=== PATIENT | female | born 1955 | race African-American/Black ===

== ENCOUNTER 2020-02-13 11:06 | Outpatient (REF) | payer OTHER, SELFPAY ==
[2020-02-13 14:01] LABS: MANUAL DIFF FLAG NO
[2020-02-13 14:04] LABS: Basophils Percent Auto 0.5 % (0-2); Eosinophils Absolute Auto 0.1 X10*3/uL (0.0-0.4); Eosinophils Percent Auto 1.2 % (0-4); Hematocrit 40.8 % (37-47); Hemoglobin 13.2 g/dl (12.0-16.0); Imm Gran Abs Auto 0.01 X10*3/uL (0.00-0.03); Imm Gran Pct Auto 0.2 % (0.0-0.4); Lymphocytes Absolute Auto 1.6 X10*3/uL (1.2-4.9); Lymphocytes Percent Auto 39.4 % (20-40); Mean Corpuscular HGB Conc 32.4 g/dl (31.0-35.0); Mean Corpuscular Hemoglobin 28.2 pg (27.0-33.0); Mean Corpuscular Volume 87.2 fL (80-98); Mean Platelet Volume 10.9 fL (9.4-12.3); Monocytes Absolute Auto 0.3 X10*3/uL (0.1-1.2); Monocytes Percent Auto 6.7 % (2-11); Neutrophils Absolute Auto 2.1 X10*3/uL (2.0-8.3); Platelet Count 218 X10*3/uL (160-400); Red Blood Count 4.68 X10*6/uL (4.20-5.50); Red Cell Distribution Width 12.2 % (11.0-16.0); White Blood Count 4.1 X10*3/uL (4.8-10.8)
[2020-02-13 14:32] LABS: Alanine Aminotransferase 18 U/L (0-31); Albumin Level 4.5 g/dL (3.5-5.0); Alkaline Phosphatase 116 U/L (39-117); Anion Gap 14 (12-20); Aspartate Amino Transferase 20 U/L (5-31); Bilirubin Total 1.2 mg/dL (0.0-1.0); Blood Urea Nitrogen 16 mg/dL (9-16); Calcium 8.5 mg/dL (8.4-10.2); Carbon Dioxide 32 mmol/L (22-29); Chloride 101 mmol/L (96-108); Cholesterol 181 mg/dL; Estimated Glomerular Filt Rate > 60; Glucose Fasting 105 mg/dL (60-99); HDL Cholesterol 58 mg/dL; LDL Cholesterol Calculated 112 mg/dl; Potassium 4.1 mmol/l (3.3-5.1); Sodium 143 mmol/L (135-145); Total Protein 7.1 g/dL (6.5-8.0); Triglycerides 58 mg/dL
[2020-02-13 14:56] LABS: Vitamin D 25-OH Total 50.1 ng/mL (>30)
== END 2020-02-13 11:07 | disposition home or self-care (01) ==
LOC: HO.HMGCLDS 11:06
PROVIDERS: PCP Internal Medicine; Visit Provider Internal Medicine
DX: E78.00 Pure hypercholesterolemia, unspecified (principal); E55.9 Vitamin D deficiency, unspecified; I10 Essential (primary) hypertension
CPT/HCPCS: 36415; 80053; 80061; 82306; 85025

== ENCOUNTER 2020-03-04 12:07 | Outpatient (REF) | payer OTHER, SELFPAY ==
--- NOTE | 2020-03-04 | MM_ITS ---
EXAMINATION: MM SCREENING DIGITAL BREAST TOMOSYNTHESIS, BILATERAL CLINICAL INFORMATION: Screening. Asymptomatic. The lifetime risk of breast cancer based on the Tyrer-Cuzick Model is 7%. COMPARISON: Mammography: 02/16/2019, 02/14/2018, 02/11/2017 TECHNIQUE: Digital breast tomosynthesis is performed in both the craniocaudal and mediolateral oblique views along with computer-aided detection (CAD). Synthesized 2D images are generated from the tomosynthesis. FINDINGS: The breasts are heterogeneously dense, which may obscure small masses (ACR BI-RADS breast composition Category c). There are no significant masses, abnormal calcifications, or other abnormalities. There is fibronodular parenchymal pattern similar to prior studies. No developing density. No significant changes. MM/MM tomosynthesis screening BI IMPRESSION: No mammographic evidence of malignancy. ASSESSMENT: BI-RADS 1: Negative RECOMMENDATION: Routine annual mammography screening. This patient's information was entered into a reminder system with a target due date for their next mammogram.
== END 2020-03-04 12:08 | disposition home or self-care (01) ==
LOC: HO.MAMMO 12:07
PROVIDERS: PCP Internal Medicine; Visit Provider Internal Medicine
DX: Z12.31 Encounter for screening mammogram for malignant neoplasm of breast (principal)
CPT/HCPCS: 77063; 77067

== ENCOUNTER 2020-08-21 11:46 | Outpatient (REF) | payer OTHER, SELFPAY ==
[2020-08-21 14:48] LABS: Anion Gap 13 (12-20); Blood Urea Nitrogen 14 mg/dL (9-16); Carbon Dioxide 31 mmol/L (22-29); Chloride 102 mmol/L (96-108); Estimated Glomerular Filt Rate > 60; Glucose Random 112 mg/dL (60-115); Potassium 3.9 mmol/L (3.3-5.1); Sodium 142 mmol/L (135-145)
== END 2020-08-21 11:47 | disposition home or self-care (01) ==
LOC: HO.10HDL 11:46
PROVIDERS: Visit Provider Internal Medicine
DX: I10 Essential (primary) hypertension (principal); E78.00 Pure hypercholesterolemia, unspecified
CPT/HCPCS: 36415; 80048

== ENCOUNTER 2021-01-30 10:51 | Outpatient (REF) | payer OTHER, SELFPAY ==
[2021-01-30 11:15] LABS: COVID-19 Test Negative (Negative)
== END 2021-01-30 10:52 | disposition home or self-care (01) ==
LOC: HO.LAB 10:51
PROVIDERS: PCP Internal Medicine; Visit Provider Internal Medicine
DX: Z20.822 Contact with and (suspected) exposure to COVID-19 (principal)
CPT/HCPCS: 36415; 87635; C9803

== ENCOUNTER 2021-03-11 13:55 | Outpatient (REF) | payer OTHER, SELFPAY ==
--- NOTE | ~2021-03-11 | MM_ITS ---
EXAMINATION: MM SCREENING DIGITAL BREAST TOMOSYNTHESIS, BILATERAL CLINICAL INFORMATION: Screening. Asymptomatic. The lifetime risk of breast cancer based on the Tyrer-Cuzick Model is 6.3%. COMPARISON: Mammography: March 04, 2020 and studies dating back to December 04, 2011 TECHNIQUE: Digital breast tomosynthesis is performed in both the craniocaudal and mediolateral oblique views along with computer-aided detection (CAD). Synthesized 2D images are generated from the tomosynthesis. FINDINGS: The breasts are heterogeneously dense, which may obscure small masses (ACR BI-RADS breast composition Category c). There are no significant masses, abnormal calcifications, or other abnormalities. MM/MM tomosynthesis screening BI IMPRESSION: There are no significant changes from prior study. ASSESSMENT: BI-RADS 1: Negative RECOMMENDATION: Routine annual mammography screening. This patient's information was entered into a reminder system with a target due date for their next mammogram.
== END 2021-03-11 13:56 | disposition home or self-care (01) ==
LOC: HO.MAMMO 13:55
PROVIDERS: Visit Provider Internal Medicine
DX: Z12.31 Encounter for screening mammogram for malignant neoplasm of breast (principal)
CPT/HCPCS: 77063; 77067

== ENCOUNTER 2021-03-15 12:09 | Outpatient (REF) | payer OTHER, SELFPAY ==
[2021-03-15 13:10] LABS: MANUAL DIFF FLAG NO
[2021-03-15 13:31] LABS: Basophils Percent Auto 0.3 % (0-2); Eosinophils Percent Auto 0.6 % (0-4); Hemoglobin 12.7 g/dl (12.0-16.0); Imm Gran Abs Auto 0.01 X10*3/uL (0.00-0.03); Imm Gran Pct Auto 0.3 % (0.0-0.4); Lymphocytes Absolute Auto 1.7 X10*3/uL (1.2-4.9); Lymphocytes Percent Auto 50.2 % (20-40); Mean Corpuscular HGB Conc 32.6 g/dl (31.0-35.0); Mean Corpuscular Hemoglobin 27.6 pg (27.0-33.0); Mean Corpuscular Volume 84.8 fL (80.0-98.0); Mean Platelet Volume 11.2 fL (9.4-12.3); Monocytes Absolute Auto 0.2 X10*3/uL (0.1-1.2); Monocytes Percent Auto 6.6 % (2-11); Neutrophils Absolute Auto 1.4 x10*3/uL (2.0-8.3); Platelet Count 220 X10*3/uL (160-400); Red Cell Distribution Width 12.4 % (11.0-16.0); White Blood Count 3.3 X10*3/uL (4.8-10.8)
[2021-03-15 13:46] LABS: Alanine Aminotransferase 17 U/L (0-31); Albumin Level 4.3 g/dL (3.5-5.0); Alkaline Phosphatase 101 U/L (39-117); Anion Gap 12 (12-20); Aspartate Amino Transferase 19 U/L (5-31); Bilirubin Total 1.2 mg/dL (0.0-1.0); Blood Urea Nitrogen 14 mg/dL (9-16); Calcium 8.8 mg/dL (8.4-10.2); Carbon Dioxide 28 mmol/L (22-29); Chloride 107 mmol/L (96-108); Cholesterol 169 mg/dL; Estimated Glomerular Filt Rate > 60; Glucose Fasting 107 mg/dL (60-99); HDL Cholesterol 49 mg/dL; LDL Cholesterol Calculated 108 mg/dl; Potassium 3.7 mmol/L (3.3-5.1); Sodium 143 mmol/L (135-145); Total Protein 6.9 g/dL (6.5-8.0); Triglycerides 63 mg/dL
== END 2021-03-15 12:10 | disposition home or self-care (01) ==
LOC: HO.HMGCLDS 12:09
PROVIDERS: PCP Internal Medicine; Visit Provider Internal Medicine
DX: I10 Essential (primary) hypertension (principal); E78.00 Pure hypercholesterolemia, unspecified; K57.90 Diverticulosis of intestine, part unspecified, without perforation or abscess without bleeding
CPT/HCPCS: 36415; 80053; 80061; 85025

== ENCOUNTER 2021-07-15 07:25 | Day surgery (SDC) | payer OTHER, SELFPAY ==
[2021-07-10 09:51] VITALS: BMI 29.0
--- NOTE | 2021-07-14 09:50 | P.CONAN_ITS ---
Documented by User: Alicia Eaton NP 07/14/21 09:51 HPI - Anesthesia Eval Consult details Narrative: 66yo F for Colonoscopy [facility] Past Medical History Medical History (Updated 07/10/21 @ 09:47 by Ann Campuzano RN) Elevated cholesterol HTN (hypertension) Surgical History Surgical History (Updated 07/10/21 @ 09:47 by Ann Campuzano RN) H/O colonoscopy Hx of hysterectomy Social History Social History Patient Tobacco Use Status: Never used Tobacco Advance Directives Information Provided: Yes (brochure mailed) Advance Directives on File: No Meds Allergies Allergy/AdvReac Type Severity Reaction Status Date / Time No Known Allergies Allergy Verified 07/10/21 09:47 [No Known Allergies*] Home Medications Medication Instructions Recorded Confirmed Last Taken Type cholecalciferol (vitamin D3) 25 25 mcg PO DAILY 07/10/21 07/10/21 Unknown His tory mcg (1,000 unit) capsule (Vitamin D3) hydrochlorothiazide 12.5 mg tablet 1 tab PO DAILY 07/10/21 07/10/21 Unknown History meloxicam 15 mg tablet 1 tab PO DAILY 07/10/21 07/10/21 Unknown History simvastatin 40 mg tablet 1 tab PO DAILY 07/10/21 07/10/21 Unknown History Exam Exam Date and Time: July 14, 2021 0950 Height,Weight and Vital Signs: Height 5 ft 4 in Weight 76.657 kg Pertinent Lab Results Pertinent Lab Results: Laboratory Tests 03/15/21 03/15/21 12:15 12:15 WBC 3.3 L Hgb 12.7 Hct 39.0 Plt Count 220 Sodium 143 Potassium 3.7 Chloride 107 Carbon Dioxide 28 BUN 14 Creatinine 0.78 Assessment and Plan Assessment Anesthesia Assessment: Chart Reviewed Documented by User: Sathish Rodriguez MD 07/15/21 08:13 [facility] Past Medical History Medical History (Updated 07/10/21 @ 09:47 by Ann Campuzano RN) Elevated cholesterol HTN (hypertension) Family History Family history of problems with anesthesia: No Surgical History Surgical History (Updated 07/10/21 @ 09:47 by Ann Campuzano RN) H/O colonoscopy Hx of hysterectomy History of Problems with Anesthesia: No Social History Social History Patient Tobacco Use Status: Never used Tobacco Advance Directives Information Provided: Yes (brochure mailed) Advance Directives on File: No Meds Allergies Allergy/AdvReac Type Severity Reaction Status Date / Time No Known Allergies Allergy Verified 07/10/21 09:47 [No Known Allergies*] Home Medications Medication Instructions Recorded Confirmed Last Taken Type cholecalciferol (vitamin D3) 25 25 mcg PO DAILY 07/10/21 07/10/21 Unknown History mcg (1,000 unit) capsule (Vitamin D3) hydrochlorothiazide 12.5 mg tablet 1 tab PO DAILY 07/10/21 07/10/21 Unknown History meloxicam 15 mg tablet 1 tab PO DAILY 07/10/21 07/10/21 Unknown History simvastatin 40 mg tablet 1 tab PO DAILY 07/10/21 07/10/21 Unknown History Exam Airway Mallampati Class: II TM Dist: >3cm Neck ROM: Full Loose/Missing/Broken Teeth: No Heart: [id number] Lungs: cta b/l Assessment and Plan Assessment Anesthesia Assessment: Anesthesia Plan Discussed Final Anesthetic Review Family History of Problems with Anesthesia: No History of Problems with Anesthesia: No NPO: Yes ASA Class: II Final Preanesthetic Review: No Changes in Pt Med Stat, Meds/Allgs Chart Reviewed, Consent Obtained/Reviewed and Anes Risks/Benef Reviewed Patient Risk: Intermediate Procedure Risk: Low Anesthetic Plan Anesthetic Plan: MAC: and Agree w/ Assess. and Plan Disposition: Standard PACU
[2021-07-15 07:40] VITALS: BP 142/83; PULSE 78; RESP 16; TEMP 36.7; O2SAT 99; BMI 28.6
[2021-07-15] MEDS: Lactated Ringers 1,000 ML 100 ML IVCONT (08:04)
--- NOTE | 2021-07-15 08:45 | MHC.SHP ---
Pre-Procedural Eval Section A Date of Service: 07/15/21 Section B Chief Complaint: Screening Details of Present Illness: screening Relevant Family History (Specify if Yes): No Relevant Social History: None Present Medications: see Short Stay Collaborative assessment Medical History: No relevant PMH History of Previous Operations: No relevant previous surgery Allergies: Allergies Allergy/AdvReac Type Severity Reaction Status Date / Time No Known Allergies Allergy Verified 07/10/21 09:47 [No Known Allergies*] Review of Systems Sugical H&P ROS: Negative: Constitution, Cardiovascular, Respiratory, Neurological, Psychiatric, Hem-Onc, Allergic/Immunologic, Gastrointestinal, Genitourinary, Musculoskeletal, Integumentary, Endocrine and Eyes/Ears/Nose/Throat Exam Surgical H&P Exam: Normal: HEENT, Normal: Heart, Normal: Lungs, Normal: Extremities, Normal: Abdomen, Normal: Skin and Normal: Neurological Plan Diagnosis/Plan: Unchanged I have reviewed the history and physical and performed a pertinent physical examination on my patient. No changes have occurred unless specified.
--- NOTE | 2021-07-15 09:07 | PM.OP ---
Brief Operative Note Date of Service: 07/15/21 Pre-op diagnosis: screening Post-op diagnosis: same Procedure: colonoscopy Surgeon: Alec Mclaughlin Anesthesia: MAC Was an Set Up Mechanic Coil Winding Machines used for this Procedure?: No Estimated blood loss (mL): 0 Pathology: none sent Condition: stable Disposition: PACU
[2021-07-15 09:12] VITALS: BP 86/51; PULSE 62; RESP 16; TEMP 36.3; O2SAT 98
[2021-07-15 09:26] VITALS: BP 119/65; PULSE 61; RESP 16; O2SAT 99
[2021-07-15 09:30] VITALS: BP 127/70; PULSE 60; RESP 16; TEMP 36.1; O2SAT 97
--- NOTE | 2021-07-15 09:47 | OP_ITS ---
SURGEON: Alec Mclaughlin MD INDICATIONS: Colon cancer screening. PREOPERATIVE DIAGNOSIS: POSTOPERATIVE DIAGNOSIS: PROCEDURE PERFORMED: Colonoscopy to the terminal ilium. ESTIMATED BLOOD LOSS: COMPLICATIONS: ANESTHESIA: Medications, monitored anesthesia care. ASSISTANTS: SPECIMENS: DESCRIPTION OF PROCEDURE: History and physical performed. The risks and benefits of the procedure were explained to the patient. Informed consent was obtained. The patient was placed in the left lateral decubitus position. A digital rectal exam was performed and was found to be normal. The Olympus pediatric video colonoscope was introduced into the rectum and advanced to the cecum without difficulty. The cecum was identified by transillumination, palpation, and identification of ileocecal valve. Examination was performed. The scope was removed. She tolerated the procedure well, was returned to the recovery area in stable condition. FINDINGS: The terminal ileum was normal. The visualized colonic mucosa was normal. The quality of the prep was good. There was mild sigmoid diverticulosis with scattered diverticula in the right colon. Retroflexed examination showed small internal hemorrhoids. IMPRESSION: Normal screening colonoscopy. RECOMMENDATION: 1. Follow up as needed. 2. Repeat colonoscopy is recommended in 10 years for average risk individuals. MD KARISSA Hall/NAREN / [phone]
== END 2021-07-15 10:10 | disposition home or self-care (01) ==
PROVIDERS: PCP Internal Medicine; Visit Provider Internal Medicine Gastroenterology
PROC: 0DJD8ZZ Inspection of Lower Intestinal Tract, Via Natural or Artificial Opening Endoscopic (ICD-10-PCS; CPT 45378; principal; 2021-07-15 08:40)
DX: Z12.11 Encounter for screening for malignant neoplasm of colon (principal); K57.30 Diverticulosis of large intestine without perforation or abscess without bleeding; K64.8 Other hemorrhoids; I10 Essential (primary) hypertension; E78.00 Pure hypercholesterolemia, unspecified; Z79.899 Other long term (current) drug therapy
CPT/HCPCS: 45378

== ENCOUNTER 2021-12-04 11:38 | Outpatient (REF) | payer OTHER, SELFPAY ==
[2021-12-04 14:20] LABS: Anion Gap 18 (12-20); Blood Urea Nitrogen 13 mg/dL (9-16); Calcium 8.6 mg/dL (8.4-10.2); Carbon Dioxide 24 mmol/L (22-29); Chloride 105 mmol/L (96-108); Estimated Glomerular Filt Rate > 60; Glucose Random 104 mg/dL (60-115); Potassium 4.4 mmol/L (3.3-5.1); Sodium 143 mmol/L (135-145)
[2021-12-04 14:41] LABS: Vitamin D 25-OH Total 46.8 ng/mL (>30)
== END 2021-12-04 11:39 | disposition home or self-care (01) ==
LOC: HO.10HDL 11:38
PROVIDERS: Visit Provider Internal Medicine
DX: I10 Essential (primary) hypertension (principal); E55.9 Vitamin D deficiency, unspecified
CPT/HCPCS: 36415; 80048; 82306

== ENCOUNTER 2022-03-16 12:31 | Outpatient (REF) | payer OTHER, SELFPAY ==
[2022-03-16 12:44] LABS: MANUAL DIFF FLAG NO
[2022-03-16 14:07] LABS: Basophils Percent Auto 0.3 % (0-2); Eosinophils Percent Auto 0.9 % (0-4); Hematocrit 38.8 % (37.0-47.0); Hemoglobin 12.8 g/dl (12.0-16.0); Imm Gran Abs Auto 0.01 X10*3/uL (0.00-0.03); Imm Gran Pct Auto 0.3 % (0.0-0.4); Lymphocytes Absolute Auto 1.7 X10*3/uL (1.2-4.9); Lymphocytes Percent Auto 48.4 % (20-40); Mean Corpuscular Hemoglobin 27.8 pg (27.0-33.0); Mean Corpuscular Volume 84.2 fL (80.0-98.0); Mean Platelet Volume 11.4 fL (9.4-12.3); Monocytes Absolute Auto 0.3 X10*3/uL (0.1-1.2); Neutrophils Absolute Auto 1.5 x10*3/uL (2.0-8.3); Neutrophils Percent Auto 42.1 % (45-73); Platelet Count 200 X10*3/uL (160-400); Red Blood Count 4.61 X10*6/uL (4.20-5.50); Red Cell Distribution Width 12.5 % (11.0-16.0); White Blood Count 3.5 X10*3/uL (4.8-10.8)
[2022-03-16 14:41] LABS: Alanine Aminotransferase 18 U/L (0-31); Albumin Level 4.4 g/dL (3.5-5.0); Alkaline Phosphatase 87 U/L (39-117); Anion Gap 12 (12-20); Aspartate Amino Transferase 19 U/L (5-31); Bilirubin Total 1.5 mg/dL (0.0-1.0); Blood Urea Nitrogen 16 mg/dL (9-16); Calcium 9.2 mg/dL (8.4-10.2); Carbon Dioxide 30 mmol/L (22-29); Chloride 106 mmol/L (96-108); Cholesterol 201 mg/dL; Estimated Glomerular Filt Rate > 60; Glucose Random 91 mg/dL (60-115); HDL Cholesterol 55 mg/dL; LDL Cholesterol Calculated 131 mg/dl; Sodium 144 mmol/L (135-145); Total Protein 6.7 g/dL (6.5-8.0); Triglycerides 76 mg/dL
== END 2022-03-16 12:32 | disposition home or self-care (01) ==
LOC: HO.LAB 12:31
PROVIDERS: PCP Internal Medicine; Visit Provider Internal Medicine
DX: Z00.00 Encounter for general adult medical examination without abnormal findings (principal)
CPT/HCPCS: 36415; 80053; 80061; 85025

== ENCOUNTER 2022-03-19 09:39 | Outpatient (REF) | payer OTHER, SELFPAY ==
--- NOTE | ~2022-03-19 | MM_ITS ---
EXAMINATION: MM SCREENING DIGITAL BREAST TOMOSYNTHESIS, BILATERAL CLINICAL INFORMATION: Screening. Asymptomatic. The lifetime risk of breast cancer based on the Tyrer-Cuzick Model is 6%. COMPARISON: Mammography: March 11, 2021 and studies dating back to February 10, 2016 TECHNIQUE: Digital breast tomosynthesis is performed in both the craniocaudal and mediolateral oblique views along with computer-aided detection (CAD). Synthesized 2D images are generated from the tomosynthesis. FINDINGS: The breasts are extremely dense, which lowers the sensitivity of mammography (ACR BI-RADS breast composition Category d). There are no significant masses, abnormal calcifications, or other abnormalities. MM/MM tomosynthesis screening BI IMPRESSION: No significant changes ASSESSMENT: BI-RADS 1: Negative RECOMMENDATION: Routine annual mammography screening. This patient's information was entered into a reminder system with a target due date for their next mammogram.
== END 2022-03-19 09:40 | disposition home or self-care (01) ==
LOC: HO.MAMMO 09:39
PROVIDERS: PCP Internal Medicine; Visit Provider Internal Medicine
DX: Z12.31 Encounter for screening mammogram for malignant neoplasm of breast (principal)
CPT/HCPCS: 77063; 77067

== ENCOUNTER 2022-08-31 15:49 | Outpatient (REF) | payer OTHER, SELFPAY ==
--- NOTE | ~2022-08-31 | XR_ITS ---
EXAMINATION: XR KNEE, LEFT CLINICAL INFORMATION: Pain. COMPARISON: None available. TECHNIQUE: Four views of the left knee. FINDINGS: No acute fractures or malalignment. Mild joint space narrowing and subcortical sclerosis of the medial and patellofemoral compartments. Small osteophytes along the anterior surface of the patella. No erosions or chondrocalcinosis. No joint effusion. XR/XR knee LT 4V IMPRESSION: No acute fractures or malalignment. Mild degenerative osteoarthritis of the medial and patellofemoral compartments.
== END 2022-08-31 15:50 | disposition home or self-care (01) ==
LOC: HO.XRAY 15:49
PROVIDERS: PCP Internal Medicine; Visit Provider Internal Medicine
DX: M25.562 Pain in left knee (principal)
CPT/HCPCS: 73564

== ENCOUNTER 2022-10-23 10:48 | Outpatient (REF) | payer OTHER, SELFPAY ==
[2022-10-23 13:27] LABS: MANUAL DIFF FLAG NO
[2022-10-23 13:36] LABS: Basophils Percent Auto 0.3 % (0-2); Eosinophils Percent Auto 1.3 % (0-4); Hematocrit 39.7 % (37.0-47.0); Imm Gran Abs Auto 0.01 X10*3/uL (0.00-0.03); Imm Gran Pct Auto 0.3 % (0.0-0.4); Lymphocytes Absolute Auto 1.4 X10*3/uL (1.2-4.9); Lymphocytes Percent Auto 43.8 % (20-40); Mean Corpuscular HGB Conc 32.7 g/dl (31.0-35.0); Mean Corpuscular Hemoglobin 28.3 pg (27.0-33.0); Mean Corpuscular Volume 86.5 fL (80.0-98.0); Mean Platelet Volume 11.5 fL (9.4-12.3); Monocytes Absolute Auto 0.3 X10*3/uL (0.1-1.2); Monocytes Percent Auto 9.9 % (2-11); Neutrophils Absolute Auto 1.4 x10*3/uL (2.0-8.3); Neutrophils Percent Auto 44.4 % (45-73); Platelet Count 195 X10*3/uL (160-400); Red Blood Count 4.59 X10*6/uL (4.20-5.50); Red Cell Distribution Width 12.4 % (11.0-16.0); White Blood Count 3.1 X10*3/uL (4.8-10.8)
[2022-10-23 14:52] LABS: Anion Gap 12 (12-20); Blood Urea Nitrogen 21 mg/dL (9-16); Calcium 9.7 mg/dL (8.4-10.2); Carbon Dioxide 30 mmol/L (22-29); Chloride 104 mmol/L (96-108); Estimated Glomerular Filt Rate > 60; Glucose Random 108 mg/dL (60-115); Potassium 3.9 mmol/L (3.3-5.1); Sodium 142 mmol/L (135-145)
== END 2022-10-23 10:49 | disposition home or self-care (01) ==
LOC: HO.10HDL 10:48
PROVIDERS: Visit Provider Internal Medicine
DX: I10 Essential (primary) hypertension (principal); E78.00 Pure hypercholesterolemia, unspecified
CPT/HCPCS: 36415; 80048; 85025

== ENCOUNTER 2023-03-25 09:05 | Outpatient (REF) | payer OTHER, SELFPAY ==
--- NOTE | ~2023-03-25 | MM_ITS ---
EXAMINATION: MM SCREENING DIGITAL BREAST TOMOSYNTHESIS, BILATERAL CLINICAL INFORMATION: Screening. Asymptomatic. COMPARISON: Mammography: 2021, 03/11/2021, and dating back to 2009. TECHNIQUE: Digital breast tomosynthesis is performed in both the craniocaudal and mediolateral oblique views along with computer-aided detection (CAD). Synthesized 2D images are generated from the tomosynthesis. FINDINGS: The breasts are heterogeneously dense, which may obscure small masses (ACR BI-RADS breast composition Category c). There are no suspicious masses, suspicious grouped calcifications, or areas of architectural distortion in either breast. The parenchymal pattern is stable from prior exams. There are no skin or axillary abnormalities. MM/MM tomosynthesis screening BI IMPRESSION: No mammographic evidence of malignancy. ASSESSMENT: BI-RADS BI-RADS 1 - Negative RECOMMENDATION: Routine annual mammography screening. 1 year F/U This examination should not preclude the clinical evaluation of a suspicious palpable abnormality. This patient's information was entered into a reminder system with a target due date for their next mammogram.
== END 2023-03-25 09:06 | disposition home or self-care (01) ==
LOC: HO.MAMMO 09:05
PROVIDERS: PCP Internal Medicine; Visit Provider Internal Medicine
DX: Z12.31 Encounter for screening mammogram for malignant neoplasm of breast (principal)
CPT/HCPCS: 77063; 77067

== ENCOUNTER → 2023-03-25 09:30 | Outpatient (BNV) | payer OTHER, SELFPAY | PROVIDERS: PCP Internal Medicine; Visit Provider Radiology Diagnostic Radiology | DX: Z12.31 Encounter for screening mammogram for malignant neoplasm of breast (principal) | CPT/HCPCS: 77063; 77067 ==

== ENCOUNTER 2023-07-05 11:53 | Outpatient (REF) | payer OTHER, SELFPAY ==
[2023-07-05 13:55] LABS: MANUAL DIFF FLAG NO
[2023-07-05 14:08] LABS: Basophils Percent Auto 0.3 % (0-2); Eosinophils Absolute Auto 0.1 X10*3/uL (0.0-0.4); Eosinophils Percent Auto 1.7 % (0-4); Hematocrit 38.7 % (37.0-47.0); Imm Gran Abs Auto 0.01 X10*3/uL (0.00-0.03); Imm Gran Pct Auto 0.3 % (0.0-0.4); Lymphocytes Absolute Auto 1.5 X10*3/uL (1.2-4.9); Lymphocytes Percent Auto 43.2 % (20-40); Mean Corpuscular HGB Conc 33.6 g/dl (31.0-35.0); Mean Corpuscular Hemoglobin 28.4 pg (27.0-33.0); Mean Corpuscular Volume 84.5 fL (80.0-98.0); Mean Platelet Volume 11.2 fL (9.4-12.3); Monocytes Absolute Auto 0.3 X10*3/uL (0.1-1.2); Monocytes Percent Auto 7.5 % (2-11); Neutrophils Absolute Auto 1.6 x10*3/uL (2.0-8.3); Platelet Count 205 X10*3/uL (160-400); Red Blood Count 4.58 X10*6/uL (4.20-5.50); Red Cell Distribution Width 12.1 % (11.0-16.0); White Blood Count 3.5 X10*3/uL (4.8-10.8)
[2023-07-05 14:44] LABS: Anion Gap 12 (12-20); Blood Urea Nitrogen 18 mg/dL (9-16); Calcium 9.2 mg/dL (8.4-10.2); Carbon Dioxide 31 mmol/L (22-29); Chloride 104 mmol/L (96-108); Estimated Glomerular Filt Rate > 60; Glucose Random 105 mg/dL (60-115); Potassium 4.1 mmol/L (3.3-5.1); Sodium 143 mmol/L (135-145)
== END 2023-07-05 11:54 | disposition home or self-care (01) ==
LOC: HO.10HDL 11:53
PROVIDERS: Visit Provider Internal Medicine
DX: I10 Essential (primary) hypertension (principal); E78.00 Pure hypercholesterolemia, unspecified
CPT/HCPCS: 36415; 80048; 85025

== ENCOUNTER 2024-06-19 11:02 | Outpatient (REF) | payer OTHER, SELFPAY ==
[2024-06-19 11:11] LABS: MANUAL DIFF FLAG NO
[2024-06-19 11:40] LABS: Basophils Percent Auto 0.3 % (0-2); Eosinophils Percent Auto 1.1 % (0-4); Hematocrit 39.1 % (37.0-47.0); Hemoglobin 12.7 g/dl (12.0-16.0); Imm Gran Abs Auto 0.02 X10*3/uL (0.00-0.03); Imm Gran Pct Auto 0.6 % (0.0-0.4); Lymphocytes Absolute Auto 1.5 X10*3/uL (1.2-4.9); Lymphocytes Percent Auto 41.5 % (20-40); Mean Corpuscular HGB Conc 32.5 g/dl (31.0-35.0); Mean Corpuscular Volume 86.3 fL (80.0-98.0); Mean Platelet Volume 11.1 fL (9.4-12.3); Monocytes Absolute Auto 0.3 X10*3/uL (0.1-1.2); Monocytes Percent Auto 7.4 % (2-11); Neutrophils Absolute Auto 1.7 x10*3/uL (2.0-8.3); Neutrophils Percent Auto 49.1 % (45-73); Platelet Count 216 X10*3/uL (160-400); Red Blood Count 4.53 X10*6/uL (4.20-5.50); Red Cell Distribution Width 12.6 % (11.0-16.0); White Blood Count 3.5 X10*3/uL (4.8-10.8)
--- OUTSIDE RECORDS SUMMARY | 2024-06-19 12:29 | XMS_ITS ---
Author Organization [facility] Address [address] [place] [address] Care Team Providers Care Food Service Ambassador Name Role Phone Beny Abraham MD Primary Care Provider UnavailBreanna Flynn Unavailable [phone] Waylon Streeter Unavailable [phone] Allergies No Known Allergies REASON FOR VISIT Wart(s), Ingrown nail(s) Medications Medication SIG (Take, Route, Frequency, Duration) Notes Start Date End Date Status hydroCHLOROthiazide 12.5 MG as directed Orally Once a day Active Simvastatin 40 MG as directed Orally O nce a day Active Vitamin D Active Meloxicam 15 MG 1 tablet Orally Once a day for 30 day(s) Active Night Splint AFO - L1930 as directed Active Social History Tobacco Use: Social History Observation Description Date Details (start date - stop date) Never Smoker NA - NA Tobacco Use/Smoking Question Answer Notes Are you a: nonsmoker Additional Findings: Tobacco Non-User Aggressive non-smoker Alcohol Screen Question Answer Notes Did you have a drink containing alcohol in the p ast year? No Points 0 Interpretation Negative Tobacco use other than smoking: Question Answer Notes Are you an other tobacco user? No Vital Signs Height 5ft 3in in 01/10/2024 Weight 158 lbs 01/10/2024 BMI 27.99 kg/m2 01/10/2024 Encounters Encounter Location Date Provider Diagnosis [facility] [address] [place] [address] 01/10/2024 Waylon Streeter Ingrowing nail L60.0 ; Hallux rigidus, left foot M20.22 ; Hallux rigidus, right foot M20.21 ; Pain in left toe(s) M79.675 ; Pain in right toe(s) M79.674 ; Other hammer toe(s) (acquired), right foot M20.41 ; Primary osteoarthritis, left ankle and foot M19.072 ; Plantar fascial fibromatosis M72.2 ; Other viral warts B07.8 ; Pain in left foot M79.672 and Pain in right foot M79.671 Assessments Encounter Date Diagnosis (ICD Code) Assessment Notes Treatment Notes Treatment Clinical Notes Section Notes 01/10/2024 Ingrowing nail (ICD-10 - L60.0) 01/10/2024 Hallux rigidus, left foot (ICD-10 - M20.22) 01/10/2024 Hallux rigidus, right foot (ICD-10 - M20.21) 01/10/2024 Pain in left toe(s) (ICD-10 - M79.675) 01/10/2024 Pain in right toe(s) (ICD-10 - M79.674) 01/10/2024 Other hammer toe(s) (acquired), right foot (ICD-10 - M20.41) 01/10/2024 Primary osteoarthritis, left ankle and foot (ICD-10 - M19.072) 01/10/2024 Plantar fascial fibromatosis (ICD-10 - M72.2) 01/10/2024 Other viral warts (ICD-10 - B07.8) 01/10/2024 Pain in left foot (ICD-10 - M79.672) 01/10/2024 Pain in right foot (ICD-10 - M79.671) Plan Of Treatment Next Appt Details Follow Up: 3 Months, 4 Month s, Reason: Provider Name:Breanna sewell, 08/28/2024 04:00:00 PM, [address] [place], [address], Procedure Notes * Category Sub-Category Detail Notes Wart Treatment Procedure Verrucae(s) were debrided to pin-point bleeding margins with sterile surgical blade (19817), silver nitrate chemocautery applied, recomm. Wartstick 40% Salicylic acid application under occlusion as directed Nail Avulsion Procedure A fine sterile e levator was used to loosen the eponychium, nail bed, nail plate and groove. A sterile nail splitter was then used to longitudinally section the nail. This section was removed. No underlying bone was identified. Procedure was performed under. Bacitracin and sterile dressings applied, local wound care instructions were dispensed. Patient was informed of both conservative and future surgical procedures to prevent recurrence Anesthesia was deferred - PT AB SOLUTELY REFUSES - tolerant to pain without issue/complication Location Lateral nail border, TA Progress Notes * Srinivasan MILLSaDOB: 4 (68 yo F)Acc No.[id number]:01/10/2024 Progress Note Patient:?Jeri Mills Provider:?Waylon Streeter DPM :1955???Age:68 Y???Sex:Female D ate:01/10/2024 Address:[address] [place], [place] [id number] Pcp:Beny Abraham MD Subjective: * Chief Complaints: * ???Wart(s)Ingrown nail(s) * HPI: ???Foot Pain:?Nature:?aching, stiffness, swelling.?Location?Great toe joint, B/L and marianna 2nd toes.?Duration:?several years.?Onset/Cause:?unknown.?Course:?unchanged.?Aggrevated:?any pressure, shoes.?Treatments:?change in shoes.?Quality/Severity?moderate.?Ankle Pain:?Nature:?aching, swelling, tenderness.?Location:?Inside aspect of the Left ankle.?Duration: ?several years .?Onset/Cause:?unknown, denies trauma.?Course:?intermittent, improved.?Heel pain:?Nature:?aching, stiffness.?Location:?Proximal plantar aspect of Heel, LEFT.?Course:?resolved.?Aggravated:?walking first thing in the morning/after rest.?Treatments:?innersoles/orthotics, change in shoes, meloxicam.?Wart:?Pt States Last PCP Visit:?Date:?11/11/2023 * ROS:?General/Constitutional:?Nausea?denies.?Vomiting?denies.?Hunger Thirst?denies.?Loss appetite?denies.?Chills?denies.?Fatigue?denies.?Fever?denies.?Night Sweats?denies.?Unexplained weight loss?denies.?Unexplained weight gain?denies.?HEENTM:?Dentures?denies.?Dizziness?denies.?Glasses/contacts?denies.?Retinopathy?de nies.?Blurred/double vision?denies.?TMJ?denies.?Discharge/drainage?denies.?Implants?denies.?Sore throat?denies.?Dental implants?denies.?Hard of hearing ?denies.?Difficulty chewing/swallowing/speaking?denies.?Nose bleeds?denies.?Sore mouth?denies.?Respiratory:?On Oxygen?denies.?Pneumonia/pleurisy?denies.?Bronchitis?denies.?Emphysema?denies.?C oughing?denies.?Cough blood?denies.?Shortness of breath?denies.?Wheezing?denies.?Cardiovascular:?Pacemaker?denies.?MVP?denies.?WPW?denies.?CHF?denies.?Heart attack?denies.?Septal defect?denies.?Rapid beat?denies.?Chest pain ?denies.?Atrial Fib.?denies.?Murmur/Palpitations?denies.?Gastrointestinal:?Hemorrhoids?denies.?Stomach/Abdominal pain?denies.?Dark blood stool?denies.?Irritable bowel ?denies.?Constipation?denies.?Diarrhea?denies.?Hematology:?Swelling?denies.?Clots?denies.?Varicose Veins?denies.?Bruising?denies.?Bleeding problem?denies.?Genitourinary:?Blood urine?denies.?Frequent/Painfu/urination/bladder control?denies.?Kidney stones?denies.?Infection (UTI)?denies.?Nephropathy?denies.?sex trans dis (STD)?denies.?Prostate?denies.?Musculoskeletal:?Hammertoes?admits.?Bunions?denies.?Back Pain?admits.?Muscle Cramps/ Resting?admits.?Muscle cramps / walking?denies.?Generalized aches and pains?denies.?Weakness?denies.?Integ.:?Wallace?denies.?Scars?denies.?Corns/calluses?admits.?Ingrown nails?denies.?Painful nails?denies.?Open Sores?denies.?Rashes?denies.?Neurologic:?Difficulty sleeping?denies.?Brain disorder?denies.?Numbness?denies.?Balance trouble?denies.?Confusion?denies.?Fainting/blackouts?denies.?Tingling?denies.?Tr emors?denies.? * Medical History:? * Surgical History:?Feliberto ghosh 08/12/2015 * Hospitalization/Major Diagno stic Procedure:?Denies Past Hospitalization * Family History:?Mother: que e, arthritis, diagnosed with Diabetic - NIDDM, Unspecified essential hypertension.?Father: , diagnosed with Unspecified essential hypertension.?Uncle: unknown, cancer, foot problems.? * Social History:?Tobacco Use:?Tobacco Use/Smoking?Are you a:?nonsmoker ?Additional Findings: Tobacco Non-User?Aggressive non-smoker ?Tobacco use other than smoking?Are you an other tobacco user??No ???Drugs/Alcohol:?Drugs?Have you used drugs other than those for medical reasons in the past 12 months??No ?Alcohol Screen?Did you have a drink containing alcohol in the past year??No ?Points?0 ?Interpretation?Negative ???Miscellaneous:?no Caffeine, none. ?no Children. ?Exercise: yes, walking. ?Marital status: single. ?Occupation: Retired Teacher. * Medications:?TakingMeloxicam 15 MG Tablet 1 tablet Orally Once a dayNight Splint AFO - L1930 as directed hydroCHLOROthiazide 12.5 MG Tablet as directed Orally Once a daySimvastatin 40 MG Tablet as directed Orally Once a dayVitamin D Medication List reviewed and reconciled with the patientTaking Meloxicam 15 MG Tablet 1 tablet Orally Once a dayTaking Night Splint AFO - L1930 as directed Taking hydroCHLOROthiazide 12.5 MG Tablet as directed Orally Once a dayTaking Simvastatin 40 MG Tablet as directed Orally Once a dayTaking Vitamin D Medication List reviewed and reconciled with the patient * Allergies:?N.K.D.A.yes[Aller gies Verified] Objective: * Vitals:?Ht: 5ft 3in, Wt:158, BMI:27.99, Shoe size: 9.5-10, Ht-cm: 160.02 cm, Wt- k.67 kg. * Examination: ???General Examination: ?GENERAL APPEARANCE:?pleasant, alert, well nourished, well developed, well hydrated, with good attention to hygene/body habitus, and in no acute distress.?ORIENTED:?person,place, and time.?Neurological: ?SENSORY:?Neurological exam is normal, pain sensation normal, vibration sensation intact, pinprick sensation is normal in the lower extremities, denies, tingling, burning, anesthesia, paresthesia, hyperesthesia, B/L.?TINEL'S COMPRESSION:?Negative tarsal tunnel, philip pedis, and medial calcaneal nerves B/L.?BABINSKI REFLEX:?absent.?Neuroma Pain: ?PALPATION:?No interspace pain noted on palpation.?Vascular: ?DP PULSES(B):? /, B/L.?PT PULSES(B):? 05/16, B/L.?CAPILLARY FILL TIME:?3 secs. per digit, B/L.?TROPHIC CONDITION-TEXTURE/ELASTICITY/TURGOR/HAIR GROWTH(B):?normal, B/L.?TEMPERTURE GRADIENT(C):?warm to cool, proximal to distal, B/L.?PIGMENTATION:?normal, B/L.?EDEMA(C):? /, B/L, Feet, Ankle(s), Leg(s).?TELANGECTASIA:?absent.?VARICOSITIES:?absent.?Dermatologic: ?SKIN FINDINGS:?Skin exam reveals normal texture, elasticity, and tugor. There are no masses. The interspaces are clear, B/L .?VERRUCA:?Reveals a Single , multi-loculated , mosaically patterned, round, raised, flat-topped, petechial bleeding papulae(s), with cauliflower appearance and interrruption of skin lines, pain to lateral compression, and size estimated at _3 mm diameter, RIGHT 5th mtpj--lateral.?Orthopedic: ?MUSCLE STRENGTH:?5/5 all groups in a symmetrical fashion , B/L.?GAIT ABNORMALITY:?pronated, abducted, B/L.?FOOT MORPHOLOGY:? Pes Planus structure, LEFT more advanced collapse than right.?BUNION:? Medially prominent 1st MPJ, Dorsally prominent 1st MPJ , (+) Pain on palpation, Lateral tracking 1st MPJ incompletely reducable, Limited 1st MPJ Dorsal ROM, Limited 1st MPJ Plantar ROM.?DIGITAL DEFORMITIES:? Digital contracture t6, t7 --overlapping t5.?Ingrown Nail: ?INSPECTION:? Reveals nail incurvation, pain on palpation, groove hypertrophy, groove ischemia, Lateral nail border, TA.?Heel Pain: ?INSPECTION:? Pain on Palpation to Plantar Fascia med. and central bands, intrinsic musc., infracalcaneal bursa, and med calc tubercle , LEFT foot--mild pop.? Assessment: * Assessment: 1.?Ingrowing nail - L60.0 (P rimary)?2.?Hallux rigidus, left foot - M20.22?3.?Hallux rigidus, right foot - M20.21?4.?Pain in left toe(s) - M79.675?5.?Pain in right toe(s) - M79.674?6.?Other hammer toe(s) (acquired), right foot - M20.41?7. Primary osteoarthritis, left ankle and foot - M19.072?8.?Plantar fascial fibromatosis - M72.2?9.?Other viral warts - B07.8?10.?Pain in left foot - M79.672?11.?Pain in right foot - M79.671? Plan: * Treatment: * Procedures:?Nail Avulsion:?Location?Lateral nail border, TA.?Anesthesia?was deferred - PT ABSOLUTELY REFUSES - tolerant to pain without issue/complication.?Procedure?A fine sterile elevator was used to loosen the eponychium, nail bed, nail plate and groove. A sterile nail splitter was then used to longitudinally section the nail. This section was removed. No underlying bone was identified. Procedure was performed under. Bacitracin and sterile dressings applied, local wound care instructions were dispensed. Patient was informed of both conservative and future surgical procedures to prevent recurrence.?Wart Treatment:?Procedure?Verrucae(s) were debrided to pin-point bleeding margins with sterile surgical blade (85795), silver nitrate chemocautery applied, recomm. Wartstick 40% Salicylic acid application under occlusion as directed.? * Procedure Codes:?81541 Avuls ion Plate, Modifiers: [place] [address] Wart Destruction, 1- 14, Modifiers: XS * Follow Up:?3 Months, 4 Month s * Images: * Sign off status: Completed true * Provider:?Waylon Streeter DPM Date:? 024 Generated for Yo hardin/Dionne/eTransmitting on:?06/19/2024 12:29 PM EDT History and Physical Notes * HPI (History of Present Illness) Category Sub-Category Detail Notes Category Not es Heel pain Nature: aching, stiffness Location: Proximal plantar asp ect of Heel, LEFT Aggravated: walking first thing in the morning/after rest Course: resolved Treatments: innersoles/orthotics , change in shoes, meloxicam Ankle Pain Duration: several years Nature: aching, swelling, te nderness Course: intermittent, improv ed Location: Inside aspect of the Left ankle Onset/Cause: unknown, denies jhony Hanks Pt States Last PCP Visit: Date:: 11/11/2023 Foot Pain Aggrevated: any pressure, shoes Onset/Cause: unknown Course: unchanged Duration: several years Nature: aching, stiffness, s welling Treatments: change in shoes Quality/Severity moderate Location Great toe joint, B/L and marianna 2nd toes Examination Category Sub-Category Detail Notes Category Not es Ingrown Nail INSPECTION: Reveals nail inc urvation, pain on palpation, groove hypertrophy, groove ischemia, Lateral nail border, TA Neuroma Pain PALPATION: No interspace pain noted on palpation Neurological SENSORY: Neurological exa m is normal, pain sensation normal, vibration sensation intact, pinprick sensation is normal in the lower extremities, denies, tingling, burning, anesthesia, paresthesia, hyperesthesia, B/L BABINSKI REFLEX: absent TINEL'S COMPRESSION: Negative tarsal nando myesha, philip pedis, and medial calcaneal nerves B/L Dermatologic SKIN FINDINGS: Skin exam reveal s normal texture, elasticity, and tugor. There are no masses. The interspaces are clear, B/L VERRUCA: Reveals a Single , m ulti-loculated , mosaically patterned, round, raised, flat-topped, petechial bleeding papulae(s), with cauliflower appearance and interrruption of skin lines, pain to lateral compression, and size estimated at _3 mm diameter, RIGHT 5th mtpj--lateral Orthopedic GAIT ABNORMALITY: pronated, abducted, B/L FOOT MORPHOLOGY: Pes Planus structure , LEFT more advanced collapse than right BUNION: Medially prominent 1 st MPJ, Dorsally prominent 1st MPJ , (+) Pain on palpation, Lateral tracking 1st MPJ incompletely reducable, Limited 1st MPJ Dorsal ROM, Limited 1st MPJ Plantar ROM DIGITAL DEFORMITIES: Digital contracture t6, t7 --overlapping t5 MUSCLE STRENGTH: 5/5 all groups in a symmetrical fashion , B/L General Examination GENERAL APPEARANCE: pleasant , alert, well nourished, well developed, well hydrated, with good attention to hygene/body habitus, and in no acute distress ORIENTED: person,place, and ti me Vascular DP PULSES (B): 1/4, B/L PT PULSES (B): 2/4, B/L CAPILLARY FILL TIME: 3 secs. per digit, B/L TEMPERTURE GRADIENT (C): warm to cool, p roximal to distal, B/L TROPHIC CONDITION-TEXTURE/ELASTICITY/TURGOR/HAIR GROWTH (B): normal, B/L EDEMA (C): 1/4, B/L, Feet, Ankl e(s), Leg(s) TELANGECTASIA: absent VARICOSITIES: absent PIGMENTATION: normal, B/L Heel Pain INSPECTION: Pain on Palpatio n to Plantar Fascia med. and central bands, intrinsic musc., infracalcaneal bursa, and med calc tubercle , LEFT foot--mild pop
--- OUTSIDE RECORDS SUMMARY | 2024-06-19 12:30 | XMS_ITS ---
Author Organization [facility] Address [address] [place] [address] Care Team Providers Care Heating Operators Engineer Name Role Phone Beny Abraham MD Primary Care Provider Breanna Calhoun Unavailable [phone] Allergies No Known Allergies REASON FOR VISIT Painful nail(s) aggravated by shoes causing difficulty standing/walking, Wart(s) Medications Medication SIG (Take, Route, Frequency, Duration) Notes Start Date End Date Status Simvastatin 40 MG as directed Orally O nce a day Active hydroCHLOROthiazide 12.5 MG as directed Orally Once a day Active Vitamin D Active Night Splint AFO - L1930 as directed Active Meloxicam 15 MG 1 tablet Orally Once a day for 30 day(s) Active Social History Tobacco Use: Social History Observation Description Date Details (start date - stop date) Never Smoker NA - NA Tobacco use other than smoking: Question Answer Notes Are you an other tobacco user? No Tobacco Control (Standard) Question Answer Notes Tobacco use: Nonsmoker Additional Findings: Tobacco non-user Current no nsmoker AUDIT-C (Standard) Question Answer Notes Did you have a drink containing alcohol in the p ast year? No Points 0 Interpretation Negative Problems Problem Type SNOMED Code ICD Code Onset Dates Problem Status W/U Status Risk Notes Problem Plantar wart (28448666) Plantar wart (B07.0) Active confirmed Vital Signs Height 5ft 3in in 05/11/2024 Weight 158 lbs 05/11/2024 BMI 27.99 kg/m2 05/11/2024 Blood pressure systolic 120 mm Hg 01/30/20 25 Blood pressure diastolic 81 mm Hg 025 Procedures Procedure Date Ordered Date Performed Result Body Sit e 07260-VOXLGZW NAIL, 6 OR MORE 05/11/2024 N/A 60322-Udaw Destruction, 1-14 05/11/2024 N/A Encounters Encounter Location Date Provider Diagnosis [facility] [address] [address] 05/11/2024 Breanna Baptisteaker Pain in right toe(s) M79.674 ; Onychomycosis B35.1 ; Pain in left toe(s) M79.675 ; Right foot pain M79.671 and Plantar wart B07.0 Assessments Encounter Date Diagnosis (ICD Code) Assessment Notes Treatment Notes Treatment Clinical Notes Section Notes 05/11/2024 Pain in right toe(s) (ICD-10 - M79.674) 05/11/2024 Onychomycosis (ICD-10 - B35.1) 05/11/2024 Pain in left toe(s) (ICD-10 - M79.675) 05/11/2024 Right foot pain (ICD-10 - M79.671) 05/11/2024 Plantar wart (ICD-10 - B07.0) Plan Of Treatment Pending Test Test Name Order Date 39603-YJYBWZC NAIL, 6 OR MORE 05/11/2024 78217-Gcnr Destruction, 1-14 05/11/2024 Next Appt Details Follow Up: prn, Reason: Provider Name:Breanna Olivajeffery melodie, 08/28/2024 04:00:00 PM, [address] [place] [address], [id number], Procedure Notes * Category Sub-Category Detail Notes Wart Treatment Procedure Verruca, as desc ribed in exam, were debrided to pin-point bleeding margins with sterile 15 surgical blade, silver nitrate chemocautery applied, recomm. immune-boosting meds such as zinc, recomm. follow up with topical chemosurgical agents, Pt defers any other forms of tx - 12958 Debride Nail 6-10 Nail debridement Due to the cl inical pathology outlined in the exam findings, performance of this nail treatment is medically necessary as its management by an unskilled/untrained nonprofessional would put this patients foot and overall health at risk. Therefore, debridement to affected nail(s), as described in exam ( TA, T1, T2, T3, T4, T5, T6, T7, T8, T9, ), was performed exclusively by the physician of record to reduce/remove overall nail length, girth, thickness, subungual debris, and necrotic tissue, by manual and/or electrical means through the use of a nail nipper and/or dremel-type pulp grinder feeder, to a more viable healthy nail plate or bed tissue 6-10 nails in total. Silver nitrate was used for any petechial bleeding as necessary. Definitive antifungal treatment options, both pharmaceutical and surgical, have been reviewed and discussed with the patient. The patient solely prefers the use of intermittent/as needed professional debridement services for their nail condition and understands the need for additional periodic treatments to maintain effectiveness in symptomatic relief - 76442 Progress Notes * Daniel MILLSB: 4 (69 yo F)Acc No.[id number]:05/11/2024 Progress Note Patient:?LINA Jeri Provider:?Breanna Polanco DPM :1955???Age:69 Y???Sex:Female D ate:05/11/2024 Address:[address] [place], [place] [id number] Pcp:Beny Abraham MD Subjective: * Chief Complaints: * ???Painful nail(s) aggravate d by shoes causing difficulty standing/walkingWart(s) * HPI: ???Painful Nails:?Pt States Last PCP Visit:?Date:?12/09/2023 ???Skin problems:?Pt States PCP Visit: ?DATE?12/09/2023 * ROS:?General/Constitutional:?Nausea?denies.?Vomiting?denies.?Hunger Thirst?denies.?Loss appetite?denies.?Chills?denies.?Fatigue?denies.?Fever?denies.?Night Sweats?denies.?Unexplained weight loss?denies.?Unexplained [...] Procedure:?Denies Past Hospitalization * Family History:?Mother: que arreguin, arthritis, diagnosed with Diabetic - NIDDM, Unspecified essential hypertension.?Father: , diagnosed with Unspecified essential hypertension.?Uncle: unknown, cancer, foot problems.? * Social History:?Tobacco Use:?Tobacco use other than smoking?Are you an other tobacco user??No ?Tobacco Control (Standard)?Tobacco use:?Nonsmoker ?Additional Findings: Tobacco non-user?Current nonsmoker ???Drugs/Alcohol:?Drugs?Have you used drugs other than those for medical reasons in the past 12 months??No ???Drug/Alcohol:?AUDIT-C (Standard)?Did you have a drink containing alcohol in the past year??No ?Points?0 ?Interpretation?Negative * Medications:?TakingMeloxicam 15 MG Tablet 1 tablet Orally Once a day Night Splint AFO - L1930 as directed hydroCHLOROthiazide 12.5 MG Tablet as directed Orally Once a day Simvastatin 40 MG Tablet as directed Orally Once a day Vitamin D Medication List reviewed and reconciled with the patientTaking Meloxicam 15 MG Tablet 1 tablet Orally Once a day Taking Night Splint AFO - L1930 as directed Taking hydroCHLOROthiazide 12.5 MG Tablet as directed Orally Once a day Taking Simvastatin 40 MG Tablet as directed Orally Once a day Taking Vitamin D Medication List reviewed and reconciled with the patient * Allergies:?N.K.D.A.yes[Aller gies Verified] Objective: * Vitals:?Ht:5ft 3in, Wt:158, BMI:27.99, Shoe size:9.5-10, BP:120/81mm Hg, Ht-cm: 160.02 cm, Wt-k.67 kg. * Examination: ???Nails: ?NAILS are:?Elongated, overgrown, dystrophic, lytic, greater than 3mm thick, discolored and friable with crumbly malodorous subungual debris, with pain on palpation, TA, T1, T2, T3, T4, T5, T6, T7, T8, T9.?Dermatologic: ?VERRUCA:?Reveals a Single , multi-loculated , mosaic-patterned, round, raised, flat-topped, petechial bleeding papule(s), with cauliflower appearance and interruption of skin lines, pain to lateral compression, and size estimated at _5_ mm diameter, plantar lateral forefoot, RIGHT.? Assessment: * Assessment: 1.?Pain in right toe(s) - M7 9.674???2.?Pain in left toe(s) - M79.675???3.?Onychomycosis - B35.1 (Primary)???4.?Right foot pain - M79.671???5.?Plantar wart - B07.0??? Plan: * Treatment: 2.?Plantar wart?Procedure: 75527-Lcso Destruction, 1-14 * Procedures:?Debride Nail 6-10:?Nail debridement?Due to the clinical pathology outlined in the exam findings, performance of this nail treatment is medically necessary as its management by an unskilled/untrained nonprofessional would put this patients foot and overall health at risk. Therefore, debridement to affected nail(s), as described in exam (? TA, T1, T2, T3, T4, T5, T6, T7, T8, T9, ), was performed exclusively by the physician of record to reduce/remove overall nail length, girth, thickness, subungual debris, and necrotic tissue, by manual and/or electrical means through the use of a nail nipper and/or dremel-type pulp grinder feeder, to a more viable healthy nail plate or bed tissue 6- 10 nails in total. Silver nitrate was used for any petechial bleeding as necessary. Definitive antifungal treatment options, both pharmaceutical and surgical, have been reviewed and discussed with the patient. The patient solely prefers the use of intermittent/as needed professional debridement services for their nail condition and understands the need for additional periodic treatments to maintain effectiveness in symptomatic relief - 92965.?Wart Treatment:?Procedure?Verruca, as described in exam, were debrided to pin-point bleeding margins with sterile 15 surgical blade, silver nitrate chemocautery applied, recomm. immune-boosting meds such as zinc, recomm. follow up with topical chemosurgical agents, Pt defers any other forms of tx - 73421.? * Procedure Codes:?68262 DEBRI DE NAIL, 6 OR [id number] Wart Destruction, 1-14, Modifiers: XS * Follow Up:?prn * Images: * Sign off status: Completed true * Provider:?Breanna Polanco DPM Date:?0 05/11/2024 Generated for Yo hardin/Dionne/Stephanie on:?06/19/2024 12:29 PM EDT History and Physical Notes * HPI (History of Present Illness) Category Sub-Category Detail Notes Category Not es Painful Nails Pt States Last PCP Visit: Date:: 12/09/2023 Skin problems Pt States PCP Visit: DATE: 12/09/2023 Examination Category Sub-Category Detail Notes Category Not es Dermatologic VERRUCA: Reveals a Single , multi-loculated , mosaic-patterned, round, raised, flat-topped, petechial bleeding papule(s), with cauliflower appearance and interruption of skin lines, pain to lateral compression, and size estimated at _5_ mm diameter, plantar lateral forefoot, RIGHT Nails NAILS are: Elongated, overg rown, dystrophic, lytic, greater than 3mm thick, discolored and friable with crumbly malodorous subungual debris, with pain on palpation, TA, T1, T2, T3, T4, T5, T6, T7, T8, T9
--- OUTSIDE RECORDS SUMMARY | 2024-06-19 12:30 | XMS_ITS | Patient Health Record ---
Author Organization [facility] Address [address] [place] [address] Care Team Providers Care Ring Spinner Name Role Phone Beny Abraham MD Primary Care Provider Alec Houston Jr Unavailable Allergies No Known Allergies Reason For Referral No Information Medications Medication SIG (Take, Route, Frequency, Duration) Notes Start Date End Date Status Vitamin D3 50 MCG (1999) 1 tablet Ora lly Once a day Active MiraLax (colon prep) 17 GM/SCOOP mixed with Gatorade or Crystal Light Orally begin at 5:00 p.m. the day before the procedure for 1 day 03/26/2021 Active hydroCHLOROthiazide 12.5 MG Oral for 90 Active Simvastatin 40 MG Oral for 90 Active Immunizations Vaccine Route Administration Date Status Comme nts Influenza Unknown 01/08/2021 Administered Social History Tobacco Use: Social History Observation Description Date Details (start date - stop date) Never Smoker NA - NA Tobacco Use/Smoking Question Answer Notes Patient is a nonsmoker Alcohol Screen Question Answer Notes Did you have a drink containing alcohol in the p ast year? No Points 0 Interpretation Negative Problems Problem Type SNOMED Code ICD Code Onset Dates Problem Status W/U Status Risk Notes Problem 303643285 Colon cancer screening (Z12.11) Active confirmed Problem 362887619 Encounter for other preprocedural examination (Z01.818) Active confirmed Problem [id number] long-term current use of diuretic (Z79.899) Active confirmed Plan Of Treatment Future Test Test Name Order Date COLONOSCOPY 03/26/2021 Insurance Providers Payer Name Payer Address Payer Phone Subscriber Number Group Number Insured Name Patient Relationship to Insured Coverage Start Date Coverage End Date [facility] [address] [place] [phone] [id number] ERIN MILLS Self - patient is the insured Medical (General) History Medical History History ICD Code hypertension Elevated cholesterol Surgical History Surgery Date(Month/Year) hysterectomy 2015
--- OUTSIDE RECORDS SUMMARY | 2024-06-19 12:30 | XMS_ITS ---
Author Organization [facility] Address [address] [place] [address] Care Team Providers Care Scientific Editor Name Role Phone Beny Abraham MD Primary Care Provider UnavailBreanna Flynn Unavailable [phone] Waylon Streeter Unavailable [phone] REASON FOR VISIT Wart(s), Ingrown nail(s) Encounters Encounter Location Date Provider Diagnosis [facility] [address] [place] [address] 12/16/2023 Waylon Streeter Ingrowing nail L60.0 ; Hallux [...] Treatment Notes Treatment Clinical Notes Section Notes 12/16/2023 Ingrowing nail (ICD-10 - L60.0) 12/16/2023 Hallux rigidus, left foot (ICD-10 - M20.22) 12/16/2023 Hallux rigidus, right foot (ICD-10 - M20.21) 12/16/2023 Pain in left toe(s) (ICD-10 - M79.675) 12/16/2023 Pain in right toe(s) (ICD-10 - M79.674) 12/16/2023 Other hammer toe(s) (acquired), right foot (ICD-10 - M20.41) 12/16/2023 Primary osteoarthritis, 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 Wartstick 40% [...] pain without issue/complication Location Lateral nail border, T1 Progress Notes * Daniel MILLSB: 4 (69 yo F)Acc No.[id number]:12/16/2023 Progress Note Patient:?LINA Jeri Provider:?Waylon Streeter DPM :1955???Age:68 Y???Sex:Female D ate:12/16/2023 Address:[address], [place] Pcp:Beny Abraham MD Subjective: * Chief Complaints: * ???1. Wart(s). 2. Ingrown krysta cerna(s). * HPI: ???Foot Pain:?Nature:?aching, stiffness, swelling.?Location?Great toe joint, B/L and marianna 2nd toes.?Duration:?several years.?Onset/Cause:?unknown.?Course:?unchanged.?Aggrevated:?any pressure, shoes.?Treatments:?change in shoes.?Quality/Severity?moderate.?Ankle Pain:?Nature:?aching, swelling, tenderness.?Location:?Inside aspect of the Left ankle.?Duration: ?several years .?Onset/Cause:?unknown, denies trauma.?Course:?intermittent, improved.?Heel pain:?Nature:?aching, stiffness.?Location:?Proximal plantar aspect of Heel, LEFT.?Course:?resolved.?Aggravated:?walking first thing in the morning/after rest.?Treatments:?innersoles/orthotics, change in shoes, meloxicam.?Wart:?Pt States Last PCP Visit:?Date:?05/13/2023 * ROS:?General/Constitutional:?Nausea?denies.?Vomiting?denies.?Hunger Thirst?denies.?Loss appetite?denies.?Chills?denies.?Fatigue?denies.?Fever?denies.?Night Sweats?denies.?Unexplained weight loss?denies.?Unexplained weight gain?denies.?HEENTM:?Dentures?denies.?Dizziness?denies.?Glasses/contacts?denies.?Retinopathy?de nies.?Blurred/double vision?denies.?TMJ?denies.?Discharge/drainage?denies.?Implants?denies.?Sore throat?denies.?Dental implants?denies.?Hard of hearing ?denies.?Difficulty chewing/swallowing/speaking?denies.?Nose bleeds?denies.?Sore mouth?denies.?Respiratory:?On Oxygen?denies.?Pneumonia/pleurisy?denies.?Bronchitis?denies.?Emphysema?denies.?C oughing?denies.?Cough blood?denies.?Shortness of breath?denies.?Wheezing?denies.?Cardiovascular:?Pacemaker?denies.?MVP?denies.?WPW?denies.?CHF?denies.?Heart attack?denies.?Septal defect?denies.?Rapid beat?denies.?Chest pain ?denies.?Atrial Fib.?denies.?Murmur/Palpitations?denies.?Gastrointestinal:?Hemorrhoids?denies.?Stomach/Abdominal pain?denies.?Dark blood stool?denies.?Irritable bowel ?denies.?Constipation?denies.?Diarrhea?denies.?Hematology:?Swelling?denies.?Clots?denies.?Varicose Veins?denies.?Bruising?denies.?Bleeding problem?denies.?Genitourinary:?Blood urine?denies.?Frequent/Painfu/urination/bladder control?denies.?Kidney stones?denies.?Infection (UTI)?denies.?Nephropathy?denies.?sex trans dis (STD)?denies.?Prostate?denies.?Musculoskeletal:?Hammertoes?admits.?Bunions?denies.?Back Pain?denies.?Muscle Cramps/ Resting?admits.?Muscle cramps / walking?denies.?Generalized aches and pains?denies.?Weakness?denies.?Integ.:?Wallace?denies.?Scars?denies.?Corns/calluses?denies.?Ingrown nails?denies.?Painful nails?denies.?Open Sores?denies.?Rashes?denies.?Neurologic:?Difficulty sleeping?denies.?Brain disorder?denies.?Numbness?denies.?Balance trouble?denies.?Confusion?denies.?Fainting/blackouts?denies.?Tingling?denies.?Tr emors?denies.? * Medical History:? Objective: * Vitals:? * Examination: ???General Examination: ?GENERAL APPEARANCE:?pleasant, alert, [...] ?PALPATION:?No interspace pain noted on palpation.?Vascular: ?DP PULSES (B):? 1/4, B/L.?PT PULSES (B):? 2/4, B/L.?CAPILLARY FILL TIME:?3 secs. per digit, B/L.?TROPHIC CONDITION-TEXTURE/ELASTICITY/TURGOR/HAIR GROWTH (B):?normal, B/L.?TEMPERTURE GRADIENT (C):?warm to cool, proximal to distal, B/L.?PIGMENTATION:?normal, B/L.?EDEMA (C):? 1/4, B/L, Feet, Ankle(s), Leg(s).?TELANGECTASIA:?absent.?VARICOSITIES:?absent.?Dermatologic: ?SKIN FINDINGS:?Skin exam [...] groove hypertrophy, groove ischemia, Lateral nail border, T1.?Heel Pain: ?INSPECTION:? Pain on Palpation to Plantar Fascia med. and central bands, intrinsic musc., infracalcaneal bursa, and med calc tubercle , LEFT foot--mild pop.? Assessment: * Assessment: 1.?Ingrowing nail - L60.0 (P rimary)???2.?Hallux rigidus, left foot - M20.22???3.?Hallux rigidus, right foot - M20.21???4.?Pain in left toe(s) - M79.675???5.?Pain in right toe(s) - M79.674???6.?Other hammer toe(s) (acquired), right foot - M20.41???7.?Primary osteoarthritis, left ankle and foot - M19.072???8.?Plantar fascial fibromatosis - M72.2???9.?Other viral warts - B07.8???10.?Pain in left foot - M79.672 ??11.?Pain in right foot - M79.671??? Plan: * Treatment: * Procedures:?Nail Avulsion:?Location?Lateral nail border, T1.?Anesthesia?was deferred - PT ABSOLUTELY REFUSES - tolerant [...] pin-point bleeding margins with sterile surgical blade (29071), silver nitrate chemocautery applied, recomm. Wartstick 40% Salicylic acid application under occlusion as directed.? * Procedure Codes:?92424 Avuls ion Plate, Modifiers: T1 , 40215 Wart Destruction, 1-14, Modifiers: XS * Follow Up:?3 Months * Images: * The named appointment provid er may or may not be the originator of this progress note, and it is not deemed complete until electronically signed by the appointment provider. Sign off status: Pending * Provider:Quintin Streeter DPM Date:? 024 Generated for Yo hardin/Dionne/Stephanie on:?06/19/2024 12:29 PM [...] Hanks Pt States Last PCP Visit: Date:: 05/13/2023 Foot Pain Aggrevated: any pressure, shoes Onset/Cause: unknown Course: unchanged Duration: several years Nature: aching, stiffness, s welling Treatments: change in shoes Quality/Severity moderate Location Great toe joint, B/L and marianna 2nd toes Examination Category Sub-Category Detail Notes Category Not es Ingrown Nail INSPECTION: Reveals nail inc urvation, pain on palpation, groove hypertrophy, groove ischemia, Lateral nail border, T1 Neuroma Pain PALPATION: No interspace pain noted [...]
[2024-06-19 12:55] LABS: Alanine Aminotransferase 25 U/L (0-31); Albumin Level 4.2 g/dL (3.5-5.0); Alkaline Phosphatase 99 U/L (39-117); Anion Gap 12 (12-20); Aspartate Amino Transferase 27 U/L (5-31); Bilirubin Total 1.3 mg/dL (0.0-1.0); Blood Urea Nitrogen 15 mg/dL (9-16); Calcium 9.1 mg/dL (8.4-10.2); Carbon Dioxide 31 mmol/L (22-29); Chloride 107 mmol/L (96-108); Cholesterol 196 mg/dL (<200); Estimated Glomerular Filt Rate > 60; Glucose Random 98 mg/dL (60-115); HDL Cholesterol 71 mg/dL (>40); LDL Cholesterol Calculated 113 mg/dL (<100); Potassium 3.7 mmol/L (3.3-5.1); Sodium 146 mmol/L (135-145); Total Protein 7.3 g/dL (6.5-8.0); Triglycerides 61 mg/dL (<150)
== END 2024-06-19 11:03 | disposition home or self-care (01) ==
LOC: HO.LAB 11:02
PROVIDERS: PCP Internal Medicine; Visit Provider Internal Medicine
DX: I10 Essential (primary) hypertension (principal); E78.00 Pure hypercholesterolemia, unspecified
CPT/HCPCS: 36415; 80053; 80061; 85025

== ENCOUNTER 2024-07-12 09:39 | Outpatient (REF) | payer OTHER, SELFPAY ==
--- OUTSIDE RECORDS SUMMARY | 2024-07-12 10:56 | XMS_ITS ---
Author Organization [facility] Address [address] [place] [address] Care Team Providers Care Hematology Technologist Name Role Phone Beny Abraham MD Primary Care Provider UnavailBreanna Flynn Unavailable [phone] Waylon Streeter Unavailable [phone] REASON FOR VISIT Wart(s), Ingrown nail(s) Encounters Encounter Location Date Provider Diagnosis [facility] [address] [place] [address] 12/16/2023 Waylon Streeter Ingrowing nail L60.0 ; [...] Provider Name:Breanna Mendoza melodie, 08/28/2024 04:00:00 PM, [address] [place] [address], [phone], Procedure Notes * Category Sub-Category Detail Notes Wart Treatment Procedure Verrucae(s) were debrided to pin-point bleeding margins with sterile surgical blade (82217), silver nitrate chemocautery applied, recomm. Wartstick 40% [...] * Daniel MILLSB: 4 (69 yo F)Acc No.[id number]:12/16/2023 Progress Note Patient:?LINA Jeri Provider:?Waylon Streeter DPM :1955???Age:68 Y???Sex:Female D ate:12/16/2023 Address:[address], [place] Pcp:Beny Abraham MD Subjective: * Chief Complaints: [...] pin-point bleeding margins with sterile surgical blade (21012), silver nitrate chemocautery applied, recomm. Wartstick 40% Salicylic acid application under occlusion as directed.? * Procedure Codes:?86664 Avuls ion Plate, Modifiers: T1 , 49447 Wart Destruction, 1-14, Modifiers: XS * Follow Up:?3 Months * Images: * The named appointment provid er may or may not be the originator of this progress note, and it is not deemed complete until electronically signed by the appointment provider. Sign off status: Pending * Provider:Quintin Streeter DPM Date:? 024 Generated for Yo hardin/Dionne/Stephanie on:?07/12/2024 10:56 AM EDT History and Physical Notes * HPI [...]
--- OUTSIDE RECORDS SUMMARY | 2024-07-12 10:56 | XMS_ITS ---
Author Organization [facility] Address [address] [place] [address] Care Team Providers Care Ceramic Coater Name Role Phone Beny Abraham MD Primary Care Provider UnavailBreanna Flynn Unavailable [phone] Waylon Streeter Unavailable [phone] Allergies No Known Allergies REASON FOR VISIT [...] 01/10/2024 Encounters Encounter Location Date Provider Diagnosis [facility] [address] [place] [address] 01/10/2024 Waylon Streeter Ingrowing nail L60.0 ; [...] Provider Name:Breanna sewell, 08/28/2024 04:00:00 PM, [address] [place], [address], Procedure Notes * Category Sub-Category Detail Notes Wart Treatment Procedure Verrucae(s) were debrided to pin-point bleeding margins with sterile surgical blade (90730), silver nitrate chemocautery applied, recomm. Wartstick 40% [...] * Srinivasan MILLSaDOB: 4 (68 yo F)Acc No.[id number]:01/10/2024 Progress Note Patient:?Jeri Mills Provider:?Waylon Streeter DPM :1955???Age:68 Y???Sex:Female D ate:01/10/2024 Address:[address] [place], [place] [id number] Pcp:Beny Abraham MD Subjective: * Chief Complaints: [...] pin-point bleeding margins with sterile surgical blade (01410), silver nitrate chemocautery applied, recomm. Wartstick 40% Salicylic acid application under occlusion as directed.? * Procedure Codes:?65521 Avuls ion Plate, [place]: [place] [address] Wart Destruction, 1- 14, Modifiers: XS * Follow Up:?3 Months, 4 Month s * Images: * Sign off status: Completed true * Provider:?Waylon Streeter DPM Date:? 024 Generated for Yo hardin/Dionne/eTransmitting on:?07/12/2024 10:56 AM EDT History and Physical [...]
--- OUTSIDE RECORDS SUMMARY | 2024-07-12 10:57 | XMS_ITS ---
Author Organization [facility] Address [address] [place] [address] Care Team Providers Care School Photographs Detailer Name Role Phone Beny Abraham MD Primary Care Provider Breanna Calhoun Unavailable [phone] Allergies No Known Allergies REASON FOR VISIT [...] W/U Status Risk Notes Problem Plantar wart (80770925) Plantar wart (B07.0) Active confirmed Vital Signs Height 5ft 3in in 05/11/2024 Weight 158 lbs 05/11/2024 BMI 27.99 kg/m2 05/11/2024 Blood pressure systolic 120 mm Hg 01/30/20 25 Blood pressure diastolic 81 mm Hg 025 Procedures Procedure Date Ordered Date Performed Result Body Sit e 08316-JRZSOTG NAIL, 6 OR MORE 05/11/2024 N/A 25234-Blah Destruction, 1-14 05/11/2024 N/A Encounters Encounter Location Date Provider Diagnosis [facility] [address] [address] 05/11/2024 Breanna Baptisteaker Pain in right toe(s) [...] Treatment Pending Test Test Name Order Date 04617-[id number] NAIL, 6 OR MORE 05/11/2024 49918-Ozuv Destruction, 1-14 05/11/2024 Next Appt Details Follow Up: prn, Reason: Provider Name:Breanna Olivajeffery melodie, 08/28/2024 04:00:00 PM, [address] [place] [address], [phone], Procedure Notes * Category Sub-Category Detail Notes Wart Treatment Procedure Verruca, as desc ribed in exam, were debrided to pin-point bleeding margins with sterile 15 surgical blade, silver nitrate chemocautery applied, recomm. immune-boosting meds such as zinc, recomm. follow up with topical chemosurgical agents, Pt defers any other forms of tx - 60339 Debride Nail 6-10 Nail debridement Due to [...] use of a nail nipper and/or dremel-type hardboard grinder, to a more viable healthy nail plate [...] to maintain effectiveness in symptomatic relief - 70861 Progress Notes * Daniel MILLSB: 4 (69 yo F)Acc No.[id number]:05/11/2024 Progress Note Patient:?LINA Jeri Provider:?Breanna Polanco DPM :1955???Age:69 Y???Sex:Female D ate:05/11/2024 Address:[address] [place], [place] [id number] Pcp:Beny Abraham MD Subjective: * Chief Complaints: [...] - B07.0??? Plan: * Treatment: 2.?Plantar wart?Procedure: 05349-Segu Destruction, 1-14 * Procedures:?Debride Nail 6-10:?Nail debridement?Due [...] use of a nail nipper and/or dremel-type hardboard grinder, to a more viable healthy nail plate [...] to maintain effectiveness in symptomatic relief - 50172.?Wart Treatment:?Procedure?Verruca, as described in exam, were debrided to pin-point bleeding margins with sterile 15 surgical blade, silver nitrate chemocautery applied, recomm. immune-boosting meds such as zinc, recomm. follow up with topical chemosurgical agents, Pt defers any other forms of tx - 52167.? * Procedure Codes:?11326 DEBRI DE NAIL, 6 OR [id number] Wart Destruction, 1-14, Modifiers: XS * Follow Up:?prn * Images: * Sign off status: Completed true * Provider:?Breanna Polanco DPM Date:?0 05/11/2024 Generated for Yo hardin/Dionne/Stephanie on:?07/12/2024 10:56 AM [...]
--- OUTSIDE RECORDS SUMMARY | 2024-07-12 10:57 | XMS_ITS | Patient Health Record ---
Author Organization [facility] Address [address] [place] [address] Care Team Providers Care Surfacer Name Role Phone Beny Abraham MD Primary [...] Problem Status W/U Status Risk Notes Problem 996175405 Colon cancer screening (Z12.11) Active confirmed Problem 823045067 Encounter for other preprocedural examination (Z01.818) Active confirmed Problem [id number] snf current use of diuretic (Z79.899) Active confirmed Plan Of Treatment Future Test Test Name Order Date COLONOSCOPY 03/26/2021 Insurance Providers Payer Name Payer Address Payer Phone Subscriber Number Group Number Insured Name Patient Relationship to Insured Coverage Start Date Coverage End Date [facility] [address] [place] [address] [phone] [id number] ERIN MILLS Self - patient is the insured Medical (General) History Medical History History ICD Code hypertension Elevated cholesterol Surgical History Surgery Date(Month/Year) hysterectomy 2015
--- OUTSIDE RECORDS SUMMARY | 2024-07-12 10:57 | XMS_ITS | Patient Health Record ---
Author Organization [facility] Address [address] [place] [address] Care Team Providers Care Marble Ceiling Installer Name Role Phone Beny Abraham MD Primary Care Provider UnavailBreanna Flynn Unavailable [phone] Waylon Streeter Unavailable [phone] Allergies No Known Allergies Reason For Referral [...] Once a day for 30 day(s) Active Immunizations Vaccine Route Administration Date Status Comme nts COVID-19 Pfizer BioNTech Vaccine Unknown 01/18/2022 Administered 06/26/2020,01/20/2021 07/19/2020,07/2021 Influenza Unknown 12/11/2021 Administered Social History Tobacco Use: Social History [...] W/U Status Risk Notes Problem Plantar wart (74372508) Plantar wart (B07.0) Active confirmed Problem Localized, primary osteoarthritis of the ankle and/or foot (956581642) Primary osteoarthrit is, left ankle and foot (M19.072) Active confirmed Problem Acquired hallux rigidus (5361370) Hallux rigidus, left foot (M20.22) Active confirmed Problem Acquired hammer toe of right foot (3621371577098616) Other hammer toe(s) (acquired), right foot (M20.41) Active confirmed Problem Acquired hallux rigidus (0336593) Hallux rigidus, right foot (M20.21) Active confirmed Vital Signs Blood pressure diastolic 81 mm Hg 05/11/2024 Height 5ft 3in in 05/11/2024 Blood pressure systolic 120 mm Hg 05/11/2024 Weight 158 lbs 05/11/2024 BMI 27.99 kg/m2 05/11/2024 Procedures Procedure Date Ordered Date Performed Result Body Sit e 00299-GWILCZE NAIL, 6 OR MORE 05/11/2024 N/A 12723-Xroo Destruction, 1-14 05/11/2024 N/A Encounters Encounter Location Date Provider Diagnosis [facility] [address] 08/30/2023 Waylon Streeter Ingrowing nail L60.0 ; Hallux [...] M79.672 and Pain in right foot M79.671 [facility] [address] 01/10/2024 Waylon Streeter Ingrowing nail L60.0 ; [...] M79.672 and Pain in right foot M79.671 [facility] [address] 05/11/2024 Breanna Polanco Pain in right toe(s) M79.674 ; Onychomycosis B35.1 ; Pain in left toe(s) M79.675 ; Right foot pain M79.671 and Plantar wart B07.[address] [address] [facility] [address] [facility] [address] [place] [address] 12/14/2023 Waylon [place] Assessments Encounter Date Diagnosis (ICD Code) Assessment Notes Treatment Notes Treatment Clinical Notes Section Notes 08/30/2023 Ingrowing nail (ICD-10 - L60.0) 08/30/2023 Hallux rigidus, left foot (ICD-10 - M20.22) 01/10/2024 Ingrowing nail (ICD-10 - L60.0) 01/10/2024 Hallux rigidus, left foot (ICD-10 - M20.22) 05/11/2024 Pain in right toe(s) (ICD-10 - M79.674) 01/10/2024 Hallux rigidus, right foot (ICD-10 - M20.21) 05/11/2024 Pain in left toe(s) (ICD-10 - M79.675) 05/11/2024 Onychomycosis (ICD-10 - B35.1) 08/30/2023 Hallux rigidus, right foot (ICD-10 - M20.21) 08/30/2023 Pain in left toe(s) (ICD-10 - M79.675) 01/10/2024 Pain in left toe(s) (ICD-10 - M79.675) 05/11/2024 Right foot pain (ICD-10 - M79.671) 05/11/2024 Plantar wart (ICD-10 - B07.0) 01/10/2024 Pain in right toe(s) (ICD-10 - M79.674) 08/30/2023 Pain in right toe(s) (ICD-10 - M79.674) 08/30/2023 Other hammer toe(s) (acquired), right foot (ICD-10 - M20.41) 01/10/2024 Other hammer toe(s) (acquired), right foot (ICD-10 - M20.41) 01/10/2024 Primary osteoarthritis, left ankle and foot (ICD-10 - M19.072) 08/30/2023 Primary osteoarthritis, left ankle and foot (ICD-10 - M19.072) 08/30/2023 Plantar fascial fibromatosis (ICD-10 - M72.2) 01/10/2024 Plantar fascial fibromatosis (ICD-10 - M72.2) 01/10/2024 Other viral warts (ICD-10 - B07.8) 08/30/2023 Other viral warts (ICD-10 - B07.8) 08/30/2023 Pain in left foot (ICD-10 - M79.672) 01/10/2024 Pain in left foot (ICD-10 - M79.672) 01/10/2024 Pain in right foot (ICD-10 - M79.671) 08/30/2023 Pain in right foot (ICD-10 - M79.671) Plan Of Treatment Pending Test Test Name Order Date X ray : Foot, left 3V 08/13/2021 97054-IZNBGLI NAIL, 6 OR MORE 05/11/2024 87279-Gmad Destruction, 1-14 05/11/2024 Next Appt Details Provider Name:Breanna sewell, 08/28/2024 04:00:00 PM, [address] [facility], [place], [address], Insurance Providers Payer Name Payer Address Payer Phone Subscriber Number Group Number Insured Name Patient Relationship to Insured Coverage Start Date Coverage End Date [facility] [address] [place] [address] [id number] Kim, Jeri Self - patient is the insured Medical (General) History Medical History History ICD Code Headaches/Migraines High blood pressure Measles Mumps Chicken Pox Surgical History Surgery Date(Month/Year) Hystorectomy 08/12/2015
== END 2024-07-12 09:40 | disposition home or self-care (01) ==
LOC: HO.MAMMO 09:39
PROVIDERS: PCP Internal Medicine; Visit Provider Internal Medicine
DX: Z12.31 Encounter for screening mammogram for malignant neoplasm of breast (principal)
CPT/HCPCS: 77063; 77067

== ENCOUNTER → 2024-07-12 09:45 | Outpatient (BNV) | payer OTHER, SELFPAY | PROVIDERS: PCP Internal Medicine; Visit Provider Internal Medicine | DX: Z12.31 Encounter for screening mammogram for malignant neoplasm of breast (principal) | CPT/HCPCS: 77063; 77067 ==

== ENCOUNTER 2024-12-05 11:02 | Outpatient (AMB) | payer OTHER, SELFPAY ==
--- OUTSIDE RECORDS SUMMARY | 2024-09-25 11:30 | XMS_ITS ---
Author [facility] Address [address] [place] [address] Care Team Providers Care Certified Nursing Attendant Name Role Phone Beny Abraham MD Primary Care Provider Breanna Calhoun [phone] Encounters Encounter Location Date Provider Diagnosis [address] [address] 09/25/2024 Breanna Polanco Plan Of Treatment Next Appt Details Provider Name:Breanna sewell, 12/18/2024 09:30:00 AM, [address] [place] [address], [phone], Progress Notes * Daniel MILLSB: (69 yo F)Acc No.[id number]:09/25/2024 Progress Note Patient: Jeri NOVA Provider: Donna Polanco DPM :1955 A ge:69 Y S ex:Female Date:09/25/2024 Address:[address] [place] [address], [place], [place] Pcp:Beny Abraham MD Subjective: * Chief Complaints: * * Medical History: Objective: * Vitals: Assessment: Plan: * Treatment: * Images: * The named appointment provid er may or may not be the originator of this progress note, and it is not deemed complete until electronically signed by the appointment provider. Sign off status: Pending * Provider: Donna Polanco DPM Date: 0 09/25/2024 Generated for Yo hardin/Dionne/Stephanie on: 0 12/05/2024 11:57 AM EDT
--- NOTE | 2024-12-05 08:27 | A.OFFPC_ITS ---
Vital Signs 12/05/24 11:05 Weight 147 lb BP 120/72 Blood Pressure Location Rt brachial Position Sitting Pulse 58 Pulse Source Pulse Oximeter Temp 97.6 F Temp Source Temporal Artery Scan Pulse Oximetry (%) 99 Oxygen Delivery Method Room Air Intake Visit Reasons: Routine /Dr Galan Sterile Processing Tech Required: No Accompanied by: Self / Same As Patient Allergies No Known Allergies (No Known Allergies*) Allergy (Verified 12/05/24 08:28) Medication List - Last Reconciled 12/05/24 by HARRY Ma cholecalciferol (vitamin D3) (Vitamin D3) 25 mcg PO DAILY fluticasone propionate 50 mcg/actuation 2 sprays intranasal DAILY hydrochlorothiazide 12.5 mg PO DAILY meloxicam 15 mg PO DAILY simvastatin 1 tab PO DAILY triamcinolone acetonide 0.1% 1 appl topical BID Tobacco use date assessed: 12/05/24 Fall risk assessment: No Falls in past year Last assessed Fall Risk: 12/05/24 Dental Screening Dental Screen Date: 12/05/24 Did you have a dental visit in the last 12 months?: Yes Did you have a dental problem in the last 6 months where you did not have access to dental care?: No HPI HPI Comments History of Present Illness Details 69 year old female with HTN, HLD and low vitamin D here for follow up. Patient had labs done 06/19/24 that were essentially normal. She is on HCTZ 12.5mg daily for HTN. Her BP today was 120/72. She is on Simvastatin 40mg. Her cholesterol was 196. She is on Vitamin D. She has not had this checked in the past year. She had an Rx for Mobic which she took for knee pain PRN. She would like this refilled. She is also using Flonase nasal spray PRN for nasal congestion. She had a mammogram in July 2024 that was normal. She had a colonoscopy 07/2021 which was normal. She has had a hysterectomy and does not need PAP. She states she remembers having a Dexa but not sure when. I do not see one in the record. She has a rash on the back of her neck. It has been there for several weeks. It is mildly pruritic. She is not sure what has caused it. [facility] Medical History (Updated 12/05/24 @ 11:56 by HARRY Ma) Elevated cholesterol HTN (hypertension) Low vitamin D level Surgical History H/O colonoscopy (~07/15/21) Hx of hysterectomy Family History Mother No problems noted. Father No problems noted. Social History Housing: Apartment Patient Tobacco Use Status: Never used Tobacco e-Cigarette/Vaping Use: Never Used service: No Current occupational status: retired Cognitive needs: No Hearing needs: No Vision needs: Yes (reading glasses) Questionnaire PHQ-9 Over the last 2 weeks, how often have you been bothered by any of the following problems? 1. Little interest or pleasure in doing things: not at all 2. Feeling down, depressed, or hopeless: not at all 3. Trouble falling or staying asleep, or sleeping too much: not at all 4. Feeling tired or having little energy: not at all 5. Poor appetite or overeating: not at all 6. Feeling bad about yourself - or that you are a failure or have let yourself or your family down: not at all 7. Trouble concentrating on things, such as reading the newspaper or watching television: not at all 8. Moving or speaking so slowly that other people could have noticed. Or the opposite - being so fidgety or restless that you have been moving around a lot more than usual: not at all 9. Thoughts that you would be better off or of hurting yourself in some way: not at all Total score: 0 Source: Developed by Drs. Wil Sandoval, Mayuri Perez, Naga Odell and colleagues, with an educational nayeli from [employer]. Thrive Questionnaire Date Thrive assessed: 12/05/24 I am a: Patient Within the past 12 months, did the food you bought not last and you didn't have the money to get more?: Never true Within the past 12 months, did you worry whether your food would run out before you got money to buy more?: Never true Do you have trouble paying for medicines?: No Do you have trouble getting transportation to medical appointments?: No Do you have trouble paying your heating and electricity bill?: No Do you have trouble taking care of your child, family member or friend?: No Do you have trouble with day-to-day activities such as bathing, preparing meals, shopping, managing finances, etc.?: No Are you currently unemployed and looking for a job?: No Are you interested in more education?: No THRIVE Score: 0 AUDIT C Alcohol Use Questionnaire (AUDIT-C) 1. How often do you have a drink containing alcohol?: Never 3. How often do you have six or more drinks on one occasion?: Never Total Score: 0 CHRIS-7 AMB Questionnaire CHRIS-7 Date CHRIS - 7 assessed: 12/05/24 Feeling nervous, anxious, or on edge: 0 = Not at all Not being able to stop or control worryin = Not at all Worrying too much about different things: 0 = Not at all Trouble relaxin = Not at all Being so restless that it is hard to sit still: 0 = Not at all Becoming easily annoyed or irritable: 0 = Not at all Feeling afraid as if something awful might happen: 0 = Not at all Total CHRIS-7 score (0-4 normal; 5-9 mild; 10-14 moderate; 15-21 severe): 0 Source: Developed by Drs. Wil Sandoval, Mayuri Perez, Naga Odell and colleagues, with an educational nayeli from [employer]. Review of Systems Const Details: CONSTITUTIONAL Negative HEAD/NECK Negative EAR/NOSE/MOUTH/THROAT Intermitted nasal congestion RESPIRATORY Negative CARDIOVASCULAR Negative GASTROINTESTINAL Negative MUSCULOSKELETAL left knee pain intermittent low back pain SKIN Pruritic rash on back of neck NEUROLOGICAL Negative PSYCHIATRIC Negative Physical exam (Primary Care) Vital Signs: Last Vital Signs Temp 97.6 F 12/05/24 11:05 Pulse 58 12/05/24 11:05 BP 120/72 12/05/24 11:05 Pulse Ox 99 12/05/24 11:05 Oxygen Delivery Method Room Air 12/05/24 11:05 GENERAL Well developed, Well nourished, in no apparent distress HEENT Head-Normocephalic Eyes- PERRLA, EOMI, Conjuctiva clear, lids WNL Ears- Canals clear, TMs WNL Mouth/Throat-No lesions, no erythema, no exudate Neck- Supple, No lymphadenopathy, thyroid WNL RESPIRATORY Normal I:E, Clear to auscultation CARDIOVASCULAR Regular, rate and rhythm, No murmurs or rubs MUSCULOSKELETAL Left knee- Full ROM, nontender, no swelling. Back-Normal ROM, Nontender, Straight leg raise negative, DTR 2+ symmetrical, Gait normal SKIN Maculopapular scaly rash on back of neck NEUROLOGICAL Gait normal PSYCHIATRIC Oriented to person, place and time Mood and affect WNL Appearance WNL Speech WNL Thought processes WNL Tobacco/Smoking Status: Tobacco use Status Tobacco use date assessed 12/05/24 12/05/24 08:29 Patient Tobacco Use Status Never used Tobacco 12/05/24 08:29 e-Cigarette/Vaping Use Never Used 12/05/24 08:29 PHQ-9: PHQ-9 Score PHQ-9: Total score 0 12/05/24 08:29 Thrive Assessment: Date of Thrive Assessment Date Thrive assessed 12/05/24 12/05/24 08:29 Coding Level of Care Code Established Pt Est Pt Level 4 (29565) Patient Type Established Diagnoses HTN (hypertension) I10 Elevated cholesterol E78.00 Low vitamin D level R79.89 Chronic pain of left knee M25.562; G89.29 Chronicity: chronic Other eczema L30.8 Eczema type: other Nasal congestion R09.81 Osteoporosis screening Z13.820 Time Spent (min) 30 Comment Time spent reviewing chart, H&P, patient education and placing orders. Assessment & Plan Assessment & Plan (1) HTN (hypertension): Code(s): I10 - Essential (primary) hypertension Category: Medical Plan: Controlled. BP today was 120/74. Patient will continue current medications. Will monitor. Patient will follow up in 6 months. (2) Elevated cholesterol: Code(s): E78.00 - Pure hypercholesterolemia, unspecified Category: Medical Plan: Controlled. Patient will continue current medications. Will monitor. Patient will follow up in 6 months. (3) Low vitamin D level: Code(s): R79.89 - Other specified abnormal findings of blood chemistry Category: Medical Plan: Will check Vitamin D level. Patient will continue current medications. Will monitor. Patient will follow up in 6 (4) Left knee pain: Code(s): M25.562 - Pain in left knee Qualifiers: Chronicity: chronic Qualified Code(s): M25.562 - Pain in left knee; G89.29 - Other chronic pain Plan: Patient to continue Mobic PRN for knee pain. Patient to follow up as needed if symptoms persist or worsen. (5) Eczema: Code(s): L30.9 - Dermatitis, unspecified Qualifiers: Eczema type: other Qualified Code(s): L30.8 - Other specified dermatitis Plan: Will treat with Triamcinolone cream. Patient to follow up as needed if symptoms persist or worsen (6) Nasal congestion: Code(s): R09.81 - Nasal congestion Plan: Patient using Flonase as needed Patient to follow up as needed if symptoms persist or worsen (7) Osteoporosis screening: Code(s): Z13.820 - Encounter for screening for osteoporosis Plan: Will request Dexa Orders: Orders XR DEXA axial skeleton Today Z13.820 - Encounter for screening for osteoporosis Vitamin D 25-OH Total Today R79.89 - Other specified abnormal findings of blood chemistry Medications: New triamcinolone acetonide 0.1% for rash on neck 1 appl topical BID 30 grams 0RF meloxicam 15 mg PO DAILY 30 tabs 0RF as needed for pain
[2024-12-05 11:05] VITALS: BP 120/72; PULSE 58; TEMP 36.4; O2SAT 99
--- OUTSIDE RECORDS SUMMARY | 2024-12-05 11:57 | XMS_ITS | Patient Health Record ---
Author Organization [facility] Audelia claudio [place] Address [address] [place] [address] Care Team Providers Care Special Education Kindergarten Teacher Name Role Phone Beny Abraham MD Primary Care Provider UnavailBreanna Flynn Unavailable [phone] Waylon Streeter Unavailable [phone] Allergies No Known Allergies Reason For Referral No Information Medications Medication SIG (Take, Route, Frequency, Duration) Notes Start Date End Date Status Meloxicam 15 MG 1 tablet Orally Once a day; Duration: 30 day(s) Active Night Splint AFO - L1930 as directed Active hydroCHLOROthiazide 12.5 MG as directed Orally Once a day Active Simvastatin 40 MG as directed Orally O nce a day Active Vitamin D Active Immunizations Vaccine Route Administration Date Status [...] W/U Status Risk Notes Problem Plantar wart (20397474) Plantar wart (B07.0) Active confirmed Problem Localized, primary osteoarthritis of the ankle and/or foot (002231621) Primary osteoarthrit is, left ankle and foot (M19.072) Active confirmed Problem Acquired hallux rigidus (5192157) Hallux rigidus, left foot (M20.22) Active confirmed Problem Acquired hammer toe of right foot (8728174479927852) Other hammer toe(s) (acquired), right foot (M20.41) Active confirmed Problem Acquired hallux rigidus (9093925) Hallux rigidus, right foot (M20.21) Active confirmed Vital Signs Blood pressure diastolic 81 mm Hg 08/28/2024 Height 5ft3in in 08/28/2024 Blood pressure systolic 120 mm Hg 08/28/2024 Weight 150 lbs 08/28/2024 BMI 26.57 kg/m2 08/28/2024 Procedures Procedure Date Ordered Date Performed Result Body Sit e 42868-HOXUMWR NAIL, 6 OR MORE 05/11/2024 N/A 50555-Jqkk Destruction, -05/11/2024 N/A 93507-PNTSCHU NAIL, 6 OR MORE 08/28/2024 N/A 88363-Oiis Destruction, 1-08/28/2024 N/A Encounters Encounter Location Date Provider Diagnosis [facility] [address] [address] 01/10/2024 Waylon Streeter Ingrowing nail L60.0 ; [...] M79.672 and Pain in right foot M79.671 [facility] [address] [address] 05/11/2024 Breanna Polanco Pain in right toe(s) M79.674 ; Onychomycosis B35.1 ; Pain in left toe(s) M79.675 ; Right foot pain M79.671 and Plantar wart B07.0 [facility] [address] [place] [address] 08/28/2024 Breanna Polanco Pain in right toe(s) M79.674 ; Onychomycosis B35.1 ; Pain in left toe(s) M79.675 ; Right foot pain M79.671 and Plantar wart B07.0 [facility] [address] [facility] [address] [place] [address] 12/14/2023 Waylon Streeter [facility] [address] 08/04/2024 Breanna Polanco [facility] [address] 08/07/2024 [facility] [address] 11/23/2024 Breanna Polanco Assessments Encounter Date Diagnosis (ICD Code) Assessment Notes Treatment Notes Treatment Clinical Notes Section Notes 01/10/2024 Ingrowing nail (ICD-10 - L60.0) 01/10/2024 Hallux rigidus, left foot (ICD-10 - M20.22) 05/11/2024 Pain in right toe(s) (ICD-10 - M79.674) 08/28/2024 Pain in right toe(s) (ICD-10 - M79.674) 08/28/2024 Onychomycosis (ICD-10 - B35.1) 05/11/2024 Onychomycosis (ICD-10 - B35.1) 05/11/2024 Pain in left toe(s) (ICD-10 - M79.675) 08/28/2024 Pain in left toe(s) (ICD-10 - M79.675) 01/10/2024 Hallux rigidus, right foot (ICD-10 - M20.21) 01/10/2024 Pain in left toe(s) (ICD-10 - M79.675) 05/11/2024 Right foot pain (ICD-10 - M79.671) 08/28/2024 Right foot pain (ICD-10 - M79.671) 08/28/2024 Plantar wart (ICD-10 - B07.0) 05/11/2024 Plantar wart (ICD-10 - B07.0) 01/10/2024 [...] X ray : Foot, left 3V 08/13/2021 40926-RPMCZQN NAIL, 6 OR MORE 05/11/2024 09107-IGGRXWS NAIL, 6 OR MORE 08/28/2024 79912-Kstz Destruction, 1-14 08/28/2024 30332-Btdh Destruction, 1-14 05/11/2024 Next Appt Details Provider Name:Breanna Mendoza melodie, 12/18/2024 09:30:00 AM, [address] [place], [address], Insurance Providers Payer Name Payer Address Payer Phone Subscriber Number Group Number Insured Name Patient Relationship to Insured Coverage Start Date Coverage End Date [facility] [address] [place] [address] [phone] [id number] Jeri Kim Self - patient is the insured Medical (General) History Medical History History ICD Code Headaches/Migraines High blood pressure Measles Mumps Chicken Pox Surgical History Surgery Date(Month/Year) Hystorectomy 08/12/2015
--- OUTSIDE RECORDS SUMMARY | 2024-12-05 11:57 | XMS_ITS | Patient Health Record ---
Author Organization [facility] Address [address] [place] [address] Care Team Providers Care Ic Designer Standard Cells Name Role Phone Leigh (RETIRED) Beny FATIMA Primary Care Provide Alec Kang Jr Unavailable [phone] Allergies No Known Allergies Reason For Referral [...] Problem Status W/U Status Risk Notes Problem [id number] Colon cancer screening (Z12.11) Active confirmed Problem 712744077 Encounter for other preprocedural examination (Z01.818) Active confirmed Problem [id number] joint terminal attack controller current use of diuretic (Z79.899) Active confirmed Plan Of Treatment Future Test Test Name Order Date COLONOSCOPY 03/26/2021 Insurance Providers Payer Name Payer Address Payer Phone Subscriber Number Group Number Insured Name Patient Relationship to Insured Coverage Start Date Coverage End Date [facility] [address] [place] [phone] [id number] ERIN MILLS Self - patient is the insured Medical (General) History Medical History History ICD Code hypertension Elevated cholesterol Surgical History Surgery Date(Month/Year) hysterectomy 2015
== END 2024-12-05 11:25 | disposition home or self-care (01) ==
LOC: HO.HMCHD 11:02
PROVIDERS: PCP Internal Medicine; Visit Provider Physician Assistant Medical
DX: I10 Essential (primary) hypertension (principal); E78.00 Pure hypercholesterolemia, unspecified; R79.89 Other specified abnormal findings of blood chemistry; M25.562 Pain in left knee; G89.29 Other chronic pain; L30.8 Other specified dermatitis; R09.81 Nasal congestion; Z13.820 Encounter for screening for osteoporosis

== ENCOUNTER 2024-12-05 11:31 | Outpatient (REF) | payer OTHER, SELFPAY | END 2024-12-05 11:32 | disposition home or self-care (01) | LOC: HO.10HDL 11:31 | PROVIDERS: Visit Provider Physician Assistant Medical | DX: E55.9 Vitamin D deficiency, unspecified (principal) | CPT/HCPCS: 36415; 82306 ==